=== PATIENT | female | born 1970 | race Caucasian/White ===

== ENCOUNTER 2016-08-09 13:08 | Day surgery (SDC) | payer BC ==
[2012-11-08 13:27] VITALS: BP 130/45
[~2016-08-09 13:08] MED LIST: DIPRIVAN 200 MG/20 ML IV ONE; Kenalog-40 IM ONE; Lactated Ringers 1,000 ML IV ONE; Sensorcaine 0.25% 10 ML IJ ONE
--- NOTE | 2016-08-09 17:19 | XRAY ---
17 seconds fluoroscopy time in surgery for left side L3-S1 MBB.
--- NOTE | 2016-08-11 02:48 | XRAY ---
Indication: Left L3-S1 MBB. Intraoperative fluoroscopy was provided for 17 seconds. Single digital spot image submitted for interpretation demonstrates posterior spinal needles with the tips projected over the expected course of the left L3-S1 nerve roots. Correlate with intraoperative findings/report.
== END 2016-08-09 15:15 | disposition home or self-care (01) ==
LOC: SDC-PAIN 13:08
PROVIDERS: ATTEND Pain Medicine Interventional Pain Medicine
DX: M47.816 Spondylosis without myelopathy or radiculopathy, lumbar region (principal); M51.36 Other intervertebral disc degeneration, lumbar region; M79.7 Fibromyalgia; R20.2 Paresthesia of skin; G63 Polyneuropathy in diseases classified elsewhere; Z79.891 Long term (current) use of opiate analgesic
CPT/HCPCS: 64493; 64494; 64495; 72020; 77003; J2704; J3301

== ENCOUNTER 2016-08-27 23:49 | Emergency (ER) | payer BC ==
[2016-08-27 23:55] VITALS: O2SAT 98
[2016-08-28] MEDS ORDERED: BABY ASPIRIN 81 MG CHEW PO ONE (00:03)
[2016-08-28] MEDS ORDERED: Nitrostat 0.4 MG (ED) SL ONE ×2 (00:03→00:14)
[2016-08-28] MEDS ORDERED: ROCEPHIN 1 Gm-D5w 50 ml Bag** 1 G/50 ML IVPB IV STA (00:06)
--- NOTE | 2016-08-28 00:12 | ERPHSYRPT ---
- History of Present Illness Time Seen by Provider: 08/27/16 23:55 Historian: patient Exam Limitations: no limitations Physician History: FOR THE PAST 3.5 HOURS PT HAS HAD SHARP LEFT ANTERIOR CHEST PAIN RADIATING TO THE BACK WITH NAUSEA. PT ADMITS TO A NON-PRODUCTIVE COUGH FOR THE PAST 5 DAYS BUT DENIES FEVER. Aspirin Treatment Today: 81 mg x 4, provided by ED Allergies/Adverse Reactions: Penicillins Allergy (Mild, Verified 08/28/16 00:10) Swelling Home Medications: Dextroamphetamine/Amphetamine [Adderall 10 mg Tablet] 20 mg PO BID 11/01/15 [ History] Biotin [Nail-Ex] 7,500 mcg PO DAILY 06/08/16 [History] Duloxetine HCl [Cymbalta] 60 mg PO DAILY 06/08/16 [History] Ergocalciferol (Vitamin D2) [Vitamin D] 50,000 unit PO .WEEKLY 06/08/16 [History ] Fluoxetine HCl [Prozac] 40 mg PO DAILY 06/08/16 [History] Hydrocodone Bit/Acetaminophen [[place] 7.5-325 Tablet] 1 each PO BID PRN PRN 06/08 [History] Gabapentin 600 mg PO BID 08/28/16 [History] Hx Tetanus, Diphtheria Vaccination/Date Given: Yes Hx Influenza Vaccination/Date Given: No Hx Pneumococcal Vaccination/Date Given: No - Review of Systems Constitutional: No Fever Respiratory: Cough Cardiac: Chest Pain Abdominal/Gastrointestinal: Nausea Musculoskeletal: Back Pain Skin: No Rash All Other Systems: Reviewed and Negative - Past Medical History Pertinent Past Medical History: Yes Neurological History: Peripheral Neuropathy ENT History: No Pertinent History, Other Cardiac History: Myocardial Infarction ([place]) Respiratory History: No Pertinent History Endocrine Medical History: No Pertinent History Musculoskeletal History: Fibromyalgia GI Medical History: No Pertinent History History: No Pertinent History Psycho-Social History: Depression Female Reproductive Disorders: No Pertinent History Other Medical History: neuropathy - Past Surgical History Past Surgical History: Yes Female Surgical History: Hysterectomy Other Surgical History: cyst removals from occiput region of scalp noted - Social History Smoking Status: Never smoker Exposure to second hand smoke: No Drug Use: none Patient Lives Alone: No - Female History Hx Now: No - Nursing Vital Signs Nursing Vital Signs: Initial Vital Signs Temperature 98.7 F Temperature Source Oral Pulse Rate [] 102 Pulse Rate 95 Respiratory Rate 16 Blood Pressure [] 144/86 Pain Intensity 6 - Physical Exam General Appearance: alert Eye Exam: PERRL/EOMI Ears, Nose, Throat Exam: moist mucous membranes, pharyngeal erythema, other (TM' S ERYTHEMATOUS) Neck Exam: normal inspection Respiratory Exam: chest tenderness (MILD LEFT ANTERIOR CHEST TENDERNESS(SIMILAR TO PAIN OF C.C.).), lungs clear Cardiovascular Exam: normal heart sounds Gastrointestinal/Abdomen Exam: soft, normal bowel sounds Back Exam: normal range of motion Extremity Exam: normal inspection, No pedal edema Neurologic Exam: alert, cooperative Skin Exam: warm, dry SpO2 Interpretation: normal SpO2: 98 Oxygen Delivery: Room Air - Course Nursing assessment & vital signs reviewed: Yes EKG Interpreted by Me: RATE (99), Sinus Rhythm, NORMAL AXIS, NORMAL INTERVALS - Radiology Exams Chest X-ray Interpretation: Interpreted by me, No Pneumonia Ordered Tests: Active Orders 24 hr Category Date Time Status Degreaser Operator STAT Care 08/28/16 00:03 Active EKG-ER Only STAT Care 08/28/16 00:03 Active IV Insertion STAT Care 08/28/16 00:03 Active Oxygen-ED Only NASAL CANNULA 2 lpm Care 08/28/16 00:03 Active Pulse Oximetry (ED) STAT Care 08/28/16 00:03 Active CHEST 1 VIEW (PORTABLE) Stat Exams 08/28/16 00:04 Taken AMYLASE Stat Lab 08/28/16 00:11 Completed CBC W DIFF Stat Lab 08/28/16 00:11 Completed CMP Stat Lab 08/28/16 00:11 Completed CULTURE, THROAT Stat Lab 08/28/16 00:16 Received LIPASE Stat Lab 08/28/16 00:11 Completed MAGNESIUM Stat Lab 08/28/16 00:11 Completed Manual Differential NC Stat Lab 08/28/16 00:11 Completed [place] Screen Stat Lab 08/28/16 00:11 Completed STREP SCREEN-BETA A Stat Lab 08/28/16 00:16 Completed TROPONIN Q3H Lab 08/28/16 00:11 Completed TROPONIN Q3H Lab 08/28/16 03:15 Ordered TROPONIN Q3H Lab 08/28/16 06:15 Ordered TROPONIN Q3H Lab 08/28/16 09:15 Ordered TROPONIN Q3H Lab 08/28/16 12:15 Ordered Medication Summary Generic Name Dose Route Start Last Admin Trade Name Freq PRN Reason Stop Dose Admin Sodium Chloride 1,000 mls @ 100 mls/hr 08/28/16 00:15 08/28/16 00:20 Sodium Chloride 0.9% 1000 Ml IV 09/27/16 00:14 100 mls/hr .Q10H SERVANDO Administration Discontinued Medications Generic Name Dose Route Start Last Admin Trade Name Bobbi PRN Reason Stop Dose Admin Aspirin 324 mg 08/28/16 00:03 08/28/16 00:19 Baby Aspirin 81 Mg Chew PO 08/28/16 00:04 324 mg STAT ONE Administration Aspirin Confirm 08/28/16 00:14 Baby Aspirin 81 Mg Chew Administered 08/28/16 00:15 Dose 324 mg .ROUTE .STK-MED ONE Ceftriaxone Sodium/Dextrose 1 g in 50 mls @ 100 mls/hr 08/28/16 00:06 00:20 Rocephin 1 Gm-D5w 50 Ml Bag IV 08/28/16 00:35 100 mls/hr STAT STA Administration Ceftriaxone Sodium/Dextrose Confirm 08/28/16 00:14 Rocephin 1 Gm-D5w 50 Ml Bag Administered 08/28/16 00:15 Dose 1 g in 50 mls @ ud IV .STK-MED ONE Ketorolac Tromethamine 30 mg 08/28/16 00:37 08/28/16 00:42 Toradol 30 Mg Injection IV 08/28/16 00:38 30 mg STAT ONE Administration Ketorolac Tromethamine Confirm 08/28/16 00:41 Toradol 30 Mg Injection Administered 08/28/16 00:42 Dose 30 mg .ROUTE .STK-MED ONE Nitroglycerin 0.4 mg 08/28/16 00:03 08/28/16 00:20 Nitrostat 0.4 Mg (Ed) SL 08/28/16 00:04 0.4 mg STAT ONE Administration Nitroglycerin Confirm 08/28/16 00:14 Nitrostat 0.4 Mg (Ed) Administered 08/28/16 00:15 Dose 0.4 mg SL .STK-MED ONE Lab/Rad Data: Laboratory Result Diagrams 08/28/16 00:11 08/28/16 00:11 Laboratory Results 08/28/16 08/28/16 08/28/16 Range/Units 00:16 00:11 00:11 WBC (4.0-10.5) K/mm3 RBC (4.1-5.4) M/mm3 Hgb (12.0-16.0) gm/dl Hct (35-47) % MCV (78-100) fl MCH (26-32) pg MCHC (32-36) g/dl RDW (11.5-14.0) % Plt Count (150-450) K/mm3 MPV (6-9.5) fl Sodium (136-145) mEq/L Potassium (3.5-5.1) mEq/L Chloride (98-107) mEq/L Carbon Dioxide (21-32) mEq/L Anion Gap (5-15) MEQ/L BUN (9-20) mg/dL Creatinine (0.55-1.30) mg/dl Estimated GFR ML/MIN Glucose (70-110) MG/DL Calcium (8.5-10.1) mg/dL Magnesium (1.8-2.4) mg/dL Total Bilirubin (0.2-1.0) mg/dL AST (15-37) U/L ALT (12-78) U/L Alkaline Phosphatase (46-116) U/L Troponin I < 0.017 (0.000-0.056) ng/ml Serum Total Protein (6.4-8.2) gm/dL Albumin (3.4-5.0) g/dL Amylase (25-115) U/L Lipase (73-393) U/L Monoscreen NEGATIVE (Negative) Streptococcus Screen NEGATIVE (Negative) 08/28/16 08/28/16 Range/Units 00:11 00:11 WBC 14.8 H (4.0-10.5) K/mm3 RBC 5.20 (4.1-5.4) M/mm3 Hgb 14.8 (12.0-16.0) gm/dl Hct 44.4 (35-47) % MCV 85.4 (78-100) fl MCH 28.5 (26-32) pg MCHC 33.3 (32-36) g/dl RDW 13.2 (11.5-14.0) % Plt Count 386 (150-450) K/mm3 MPV 9.0 (6-9.5) fl Sodium 138 (136-145) mEq/L Potassium 3.9 (3.5-5.1) mEq/L Chloride 103 (98-107) mEq/L Carbon Dioxide 22.7 (21-32) mEq/L Anion Gap 15.7 H (5-15) MEQ/L BUN 16 (9-20) mg/dL Creatinine 0.95 (0.55-1.30) mg/dl Estimated GFR > 60 ML/MIN Glucose 111 H (70-110) MG/DL Calcium 9.5 (8.5-10.1) mg/dL Magnesium 1.7 L (1.8-2.4) mg/dL Total Bilirubin 0.50 (0.2-1.0) mg/dL AST 17 (15-37) U/L ALT 27 (12-78) U/L Alkaline Phosphatase 122 H (46-116) U/L Troponin I (0.000-0.056) ng/ml Serum Total Protein 7.8 (6.4-8.2) gm/dL Albumin 3.8 (3.4-5.0) g/dL Amylase 22 L (25-115) U/L Lipase 63 L (73-393) U/L Monoscreen (Negative) Streptococcus Screen (Negative) - Departure Time of Disposition: 01:20 Departure Disposition: Home Clinical Impression: CHEST PAIN, BOM, PHARYNGITIS, PN, FIBROMYALGIA Condition: Stable Critical Care Time: No Referrals: WAQAR GREEN MD [Primary Care Provider] - Instructions: Chest Pain, Otitis Media (Middle Ear Infection), Pharyngitis/ Tonsillopharyngitis -- Adult Additional Instructions: FOLLOW UP WITH PRIVATE DOCTOR TOMORROW. Prescriptions: Guaifenesin/Codeine Phosphate [Robitussin AC Syrup] 10 ml PO Q4H PRN PRN #120 ml PRN Reason: Cough Naproxen [Naprosyn] 500 mg PO Q12H PRN PRN #20 tablet PRN Reason: Pain Azithromycin 250 mg [Zithromax 250 MG TABLET] 250 mg PO ZPACK #6 tablet
[2016-08-28] MEDS ORDERED: BABY ASPIRIN 81 MG CHEW ONE (00:14)
[2016-08-28] MEDS ORDERED: Sodium Chloride 0.9% 1000 ML 1,000 ML ONE (00:14)
[2016-08-28] MEDS ORDERED: ROCEPHIN 1 Gm-D5w 50 ml Bag** 1 G/50 ML IVPB IV ONE (00:14)
[2016-08-28] MEDS ORDERED: Sodium Chloride 0.9% 1000 ML 1,000 ML IV SCH (00:15)
[2016-08-28 00:25] LABS: Mean Cell Volume 85.4 fl (78-100); Mean Corpuscular Hemoglobin 28.5 pg (26-32); Platelet Count 386 K/mm3 (150-450); Red Cell Distribution Width 13.2 % (11.5-14.0); White Blood Count 14.8 K/mm3 (4.0-10.5)
[2016-08-28 00:35] LABS: ALBUMIN 3.8 g/dL (3.4-5.0); ALKALINE PHOSPHATASE 122 U/L (46-116); ANION GAP 15.7 MEQ/L (5-15); BLOOD UREA NITROGEN 16 mg/dL (9-20); CHLORIDE 103 mEq/L (98-107); Carbon Dioxide 22.7 mEq/L (21-32); Glucose 111 MG/DL (70-110); LIPASE 63 U/L (73-393); MAGNESIUM 1.7 mg/dL (1.8-2.4); Potassium 3.9 mEq/L (3.5-5.1); SGOT/AST 17 U/L (15-37); SGPT/ALT 27 U/L (12-78); SODIUM 138 mEq/L (136-145); Total Protein 7.8 gm/dL (6.4-8.2)
[2016-08-28] MEDS ORDERED: TORAdol 30 mg Injection IV ONE (00:37)
[2016-08-28] MEDS ORDERED: TORAdol 30 mg Injection ONE (00:41)
[2016-08-28] MEDS ORDERED: Robitussin AC Syrup Unit Dose Cup PO PRN (01:21)
[2016-08-28] MEDS ORDERED: Hydromorphone 1 mg/ml Ampule IV ONE (01:23)
[2016-08-28] MEDS ORDERED: Phenergan 25 MG INJ IV ONE (01:23)
[2016-08-28] MEDS ORDERED: Phenergan 25 MG INJ ONE (01:28)
[2016-08-28] MEDS ORDERED: Hydromorphone 1 mg/ml Ampule ONE (01:28)
[2016-08-28] MEDS ORDERED: MAG-OX 400 ONE (01:28)
[2016-08-28] MEDS ORDERED: Robitussin AC Syrup Unit Dose Cup ONE (01:39)
[2016-08-28 01:49] VITALS: BP 123/75; PULSE 86
[2016-08-28 03:37] LABS: ATYPICAL LYMPHS 4 %; BAND 3 % (0.0-2.0); Basophil 2 % (0.0-1.0); Eosinophil 1 % (0.00-3.0); Platelet Estimate NORMAL (NORMAL); Total Cells Counted 100
--- NOTE | 2016-08-28 08:41 | XRAY ---
Indication: Chest pain. Comparison: November 01, 2015. Portable chest remains clear. Heart and mediastinal structures within normal limits for AP portable projection. Bony thorax intact. Impression: Stable nonacute chest.
[2016-08-28] MEDS ORDERED: MAG-OX 400 PO SCH (10:00)
== END 2016-08-28 02:03 | disposition home or self-care (01) ==
LOC: ED 23:49
DX: R07.89 Other chest pain (principal); H66.93 Otitis media, unspecified, bilateral; J02.9 Acute pharyngitis, unspecified; J18.9 Pneumonia, unspecified organism; M79.7 Fibromyalgia; M54.9 Dorsalgia, unspecified; R11.0 Nausea; R05 Cough
CPT/HCPCS: 36000; 36415; 71010; 80053; 82150; 83690; 83735; 84484; 85025; 86308; 87070; 87430; 93005; 93041; 96360; 96361; 96365; 96374; 96375; 99284; J0696; J1170; J1885; J2550; A9270-GY

== ENCOUNTER 2017-05-09 09:29 | Day surgery (SDC) | payer BC ==
[2012-11-08 13:27] VITALS: BP 130/45
[2017-05-09] MEDS ORDERED: Lactated Ringers 1,000 ML IV ONE (09:30)
[2017-05-09] MEDS ORDERED: Marcaine 0.5% SDV 10 ML ONE (10:00)
[2017-05-09] MEDS ORDERED: DIPRIVAN 200 MG/20 ML IV ONE (10:00)
[2017-05-09] MEDS ORDERED: Xylocaine 1% Vial 30 ML PF IJ ONE (10:00)
--- NOTE | 2017-05-09 12:31 | XRAY ---
Indication: Left L3-L4 and L4-L5 facet MBB. Intraoperative fluoroscopy was provided for 26 seconds. Single digital spot image submitted for interpretation demonstrates posterior spinal needle tips projecting over the left L3-L4 and L4-L5 facets. Correlate with intraoperative findings/report.
--- NOTE | 2017-05-09 12:57 | XRAY ---
26 seconds fluoroscopy time in surgery for left L3-4 and L4-5 facet MBB.
--- NOTE | 2017-05-10 12:37 | OP ---
DATE OF PROCEDURE: 05/09/2017 1047 SURGEON: Pipe Paris D.O. PREOPERATIVE DIAGNOSIS: Degenerative lumbar spine disease, spondylosis, low back pain. POSTOPERATIVE DIAGNOSIS: Degenerative lumbar spine disease, spondylosis, low back pain. PROCEDURE PERFORMED: Left L4-L3 medial branch block under fluoroscopic guidance. DESCRIPTION OF THE PROCEDURE: The patient was taken to the operating room and placed in the prone position on the table. Skin at the injection site was prepped and draped in sterile fashion. Under fluoroscopy, bony anatomy of the targeted injection site was visualized. Induction agent was given as per anesthesia while vital signs were monitored. Local anesthetic agent of 2 cc, 1% lidocaine preservative free was introduced to anesthetize the skin and the subcutaneous tissue through the injection site. Under fluoroscopic guidance, a #20 gauge standard spinal needle was advanced into the target medial branch through the oblique approach. The preservative free 0.5 cc of 1% lidocaine and 0.5 cc of 0.25 - 0.5% Marcaine were injected into each of the targeted medial branch nerve. After the needle was being removed, the skin was cleansed with alcohol and then a bandage was applied. No complications or adverse consequences were observed. The patient was returned to the holding area until stabilized before discharge to home. After the patient had been fully recovered from anesthesia, the patient states 100% pain reduction for back pain after the procedure and there is 50% pain reduction for the leg pain. The patient will be followed up within ten days after the injection for re-evaluation.
== END 2017-05-09 11:34 | disposition home or self-care (01) ==
LOC: SDC-PAIN 09:29
PROVIDERS: ATTEND Internal Medicine
DX: M46.96 Unspecified inflammatory spondylopathy, lumbar region (principal); M51.36 Other intervertebral disc degeneration, lumbar region; M62.838 Other muscle spasm; Z79.891 Long term (current) use of opiate analgesic
CPT/HCPCS: 64493; 64494; 72020; 77003; J2001; J2704

== ENCOUNTER 2017-07-27 19:46 | Emergency (ER) | payer BC ==
[2017-07-27] MEDS ORDERED: Sodium Chloride 0.9% 1000 ML 1,000 ML (20:23)
[2017-07-27] MEDS: Sodium Chloride 0.9% 1000 ML 1,000 ML IV (20:24)
[2017-07-27 20:29] LABS: Granulocyte Absolute (ANC) 10.34 (1.4-6.9); Hematocrit 46.1 % (35-47); Hemoglobin 15.4 gm/dl (12.0-16.0); Mean Cell Volume 85.4 fl (78-100); Mean Corpuscular Hemoglobin 28.5 pg (26-32); Mean Corpuscular Hgb Concent. 33.4 g/dl (32-36); Mean Platelet Volume 9.4 fl (6-9.5); Platelet Count 395 K/mm3 (150-450); Red Cell Distribution Width 13.3 % (11.5-14.0); White Blood Count 14.1 K/mm3 (4.0-10.5)
[2017-07-27 20:35] LABS: ADD MANUAL DIFF? YES (NO)
[2017-07-27 20:42] LABS: ALBUMIN 4.6 g/dL (3.5-5.0); ALKALINE PHOSPHATASE 149 U/L (38-126); ANION GAP 18.7 MEQ/L (5-15); BLOOD UREA NITROGEN 18 mg/dL (7-17); CHLORIDE 103 mmol/L (98-107); Calcium 10.2 mg/dL (8.4-10.2); Carbon Dioxide 25 mmol/L (22-30); Creatinine 1 0.97 mg/dL (0.52-1.04); EST GLOMERULAR FILTRATION RATE > 60.0 ML/MIN; Glucose 141 mg/dL (74-106); MAGNESIUM 1.9 mg/dL (1.6-2.3); SGOT/AST 33 U/L (14-36); SGPT/ALT 33 U/L (0-35); SODIUM 141 mmol/L (137-145); Total Protein 8.6 g/dL (6.3-8.2)
[2017-07-27] MEDS ORDERED: Ativan 2 MG/1 ML VIAL (21:03)
[2017-07-27] MEDS ORDERED: ROCEPHIN 1 Gm-D5w 50 ml Bag** 1 G/50 ML IVPB IV (21:03)
[2017-07-27] MEDS ORDERED: TORAdol 30 mg Injection (21:03)
[2017-07-27] MEDS: TORAdol 30 mg Injection IV (21:05)
[2017-07-27 21:11] LABS: BAND 4 % (0.0-2.0); Basophil 1 % (0.0-1.0); Lymphocytes 14 % (24-44); Monocyte 3 % (0.0-12.0); Neutrophils 78 % (36.0-66.0); Total Cells Counted 100
[2017-07-27 21:13] LABS: Platelet Estimate NORMAL (NORMAL)
[2017-07-27] MEDS: ROCEPHIN 1 Gm-D5w 50 ml Bag** 1 G/50 ML IVPB IV (21:18)
[2017-07-27] MEDS: Ativan 2 MG/1 ML VIAL IV (21:18)
[2017-07-27 21:46] LABS: Appearance CLOUDY (CLEAR); Collection Type CLOUDY; Leukocyte Esterase 2+ (NEGATIVE)
[2017-07-27 21:47] LABS: Bilirubin NEGATIVE (NEGATIVE); Blood TRACE NON-HEM Ery/ul (0-5); COMPLETE URINE MICROSCOPIC? YES; Glucose NEGATIVE (NEGATIVE); Ketones SMALL (NEGATIVE); Nitrite NEGATIVE (NEGATIVE); Protein,Urine Dip NEGATIVE (Negative); Urobilinogen NORMAL mg/dL (0-1)
[2017-07-27 21:49] LABS: Epithelial Cells RARE /HPF (FEW)
[2017-07-27 21:50] LABS: ADD URINE CULTURE? YES (NO)
[2017-07-27] MEDS: Rocephin 1000 MG INJ IM (21:51)
== END 2017-07-27 22:46 | disposition home or self-care (01) ==
LOC: ED 19:46
CPT/HCPCS: 36415; 80053; 81000; 83735; 85025; 87086; 96360; 96375; J0696; J1885; J2060

== ENCOUNTER 2018-08-21 14:08 | Day surgery (SDC) | payer BC ==
[2012-11-08 13:27] VITALS: BP 130/45
[2018-08-21] MEDS ORDERED: Xylocaine 1% Vial 30 ML PF IJ ONE (14:09)
[2018-08-21] MEDS ORDERED: DIPRIVAN 200 MG/20 ML IV ONE (14:09)
[2018-08-21] MEDS ORDERED: Sodium Chloride 0.9(Preservative Free) 10 ML IJ ONE (14:09)
[2018-08-21] MEDS ORDERED: Depo-Medrol 40 MG/ML IM ONE (14:09)
[2018-08-21] MEDS ORDERED: BENADRYL 50 MG/ML ONE (16:33)
[2018-08-21] MEDS ORDERED: Lactated Ringers 1,000 ML IV ONE (17:05)
--- NOTE | 2018-08-21 17:21 | XRAY ---
14 seconds fluoroscopy time in surgery for lumbar TERRELL.
--- NOTE | 2018-08-21 18:47 | XRAY ---
17 seconds fluoroscopy time in surgery for cervical TERRELL.
== END 2018-08-21 16:38 | disposition home or self-care (01) ==
LOC: SDC-PAIN 14:08
PROVIDERS: ATTEND Psychiatry & Neurology Pain Medicine
DX: M54.16 Radiculopathy, lumbar region (principal); G47.30 Sleep apnea, unspecified; G62.9 Polyneuropathy, unspecified; F32.9 Major depressive disorder, single episode, unspecified
CPT/HCPCS: 72020; 77003; J1030; J1200; J2001; J2704

== ENCOUNTER 2019-02-26 13:53 | Day surgery (SDC) | payer BC ==
[2012-11-08 13:27] VITALS: BP 130/45
[2019-02-26] MEDS ORDERED: Xylocaine-Mpf 2% 5 Ml Vial IJ ONE (13:54)
[2019-02-26] MEDS ORDERED: Sensorcaine 0.25% 10 ML IJ ONE (13:54)
[2019-02-26] MEDS ORDERED: Ketamine HCl 50 MG/ML ONE (14:38)
[2019-02-26] MEDS ORDERED: DIPRIVAN 200 MG/20 ML IV ONE ×2 (14:38→15:00)
[2019-02-26] MEDS ORDERED: Lactated Ringers 1,000 ML IV ONE (16:02)
--- NOTE | 2019-02-26 16:38 | XRAY ---
Indication: Left lumbar sympathetic nerve block. Intraoperative fluoroscopy was provided for 20 seconds. 2 digital spot images submitted for interpretation demonstrates posterior left needle tip projecting just anterior to the L3 vertebral body. Small amount of contrast injected for needle tip placement. Correlate with intraoperative findings/report.
--- NOTE | 2019-02-26 16:54 | XRAY ---
20 seconds fluoroscopy time in surgery for left lumbar sympathetic nerve block.
== END 2019-02-26 15:30 | disposition home or self-care (01) ==
LOC: SDC-PAIN 13:53
PROVIDERS: ATTEND Psychiatry & Neurology Pain Medicine
DX: G90.522 Complex regional pain syndrome I of left lower limb (principal); G47.30 Sleep apnea, unspecified; F41.8 Other specified anxiety disorders; M79.7 Fibromyalgia; I51.9 Heart disease, unspecified; G62.9 Polyneuropathy, unspecified; Z79.899 Other long term (current) drug therapy
CPT/HCPCS: 64520; 72020; 77002; J2704; Q9966

== ENCOUNTER 2019-09-24 12:24 | Day surgery (SDC) | payer BC ==
[2012-11-08 13:27] VITALS: BP 130/45
[2019-09-24] MEDS ORDERED: Sensorcaine 0.25% 10 ML IJ ONE (12:25)
[2019-09-24] MEDS ORDERED: Xylocaine 1% Vial 30 ML PF IJ ONE (12:25)
[2019-09-24] MEDS ORDERED: Ketamine HCl 50 MG/ML ONE (14:03)
[2019-09-24] MEDS ORDERED: DIPRIVAN 200 MG/20 ML IV ONE (14:03)
[2019-09-24] MEDS ORDERED: Lactated Ringers 1,000 ML IV ONE (15:51)
--- NOTE | 2019-09-24 16:08 | XRAY ---
Indication: Right lumbar sympathetic nerve block. Intraoperative fluoroscopy was provided for 33 seconds. 2 digital spot images submitted for interpretation demonstrates right posterior needle tip projecting anterior to a mid lumbar segment, probably L3. Small amount of contrast injected for needle tip placement. Correlate with intraoperative findings/report.
--- NOTE | 2019-09-24 16:14 | XRAY ---
33 seconds fluoroscopy time in surgery for right sympathetic lumbar nerve block.
== END 2019-09-24 14:36 | disposition home or self-care (01) ==
LOC: SDC-PAIN 12:24
PROVIDERS: ATTEND Psychiatry & Neurology Pain Medicine
DX: G90.521 Complex regional pain syndrome I of right lower limb (principal); G47.30 Sleep apnea, unspecified; G62.9 Polyneuropathy, unspecified; M79.7 Fibromyalgia; Z79.899 Other long term (current) drug therapy; Z86.79 Personal history of other diseases of the circulatory system; I25.2 Old myocardial infarction
CPT/HCPCS: 64520; 72100; 77002; J2001; J2704; Q9966

== ENCOUNTER 2020-11-13 16:23 | Observation (INO) | payer OTHER ==
--- NOTE | 2020-11-13 16:43 | ERPHSYRPT ---
- History of Present Illness Time Seen by Provider: 11/13/20 16:43 Source: patient Physician History: This is a 50-year-old morbidly obese white female patient of Dr. Green who has received both vaccinations of [employer] COVID-19 vaccine and presents with multiple complaints including headache, rib pain, shortness of breath, fever, cough. Patient presents with room air oxygenation of 98%. Her heart rate is within normal limits. She is afebrile. Patient stated that 2 days ago she began a Z- Adarsh that her family member had. Patient has a significant history of insulin- dependent diabetes, peripheral neuropathy, fibromyalgia, and gastroesophageal reflux disease. Patient sees Dr. Kenny as her pain specialist for her fibromyalgia and peripheral neuropathy. Patient states that she has had a myocardial infarction in the past. Her symptoms have been worsening over the last 2 days. She denies abdominal pain. She denies vomiting and diarrhea. Cough Quality/Degree: mild Possible Cause: occasional episodes Associated Symptoms: fever, cough, headache, nasal congestion, nasal drainage, shortness of breath Allergies/Adverse Reactions: Penicillins Allergy (Mild, Verified 11/13/20 16:47) Swelling Home Medications: Duloxetine HCl [Cymbalta] 60 mg PO DAILY 06/08/16 [History] Ergocalciferol (Vitamin D2) [Vitamin D] 50,000 unit PO .WEEKLY 06/08/16 [Hist ory] Hydrocodone Bit/Acetaminophen [[place] 7.5-325 Tablet] 1 each PO [id number] PRN 06/08/16 [History] Gabapentin 600 mg PO UD 08/28/16 [History] Omeprazole 20 MG [Prilosec 20 mg] 20 mg PO DAILY 05/02/17 [History] Fluoxetine HCl 1 ea DAILY 11/13/20 [History] Insulin Detemir [Levemir] 45 unit SQ DAILY 11/13/20 [History] modafiniL [Provigil] 1 ea DAILY 11/13/20 [History] Hx Tetanus, Diphtheria Vaccination/Date Given: Yes Hx Influenza Vaccination/Date Given: No Hx Pneumococcal Vaccination/Date Given: No Travel Risk - International Travel Have you traveled outside of the country in past 3 weeks: No - Coronavirus Screening Are you exhibiting any of the following symptoms?: No Close contact with a COVID-19 positive Pt in past 14-21 Days: No - Vaccine Status Have you recieved a Covid-19 vaccination: Yes 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[employer]: [employer] - Review of Systems Constitutional: Fever Eyes: No Symptoms Ears, Nose, & Throat: Nose Congestion, Nose Discharge Respiratory: Cough, Dyspnea Cardiac: Chest Pain Abdominal/Gastrointestinal: No Symptoms (With cough) Genitourinary Symptoms: No Symptoms Musculoskeletal: No Symptoms Skin: No Symptoms Neurological: No Symptoms, Sensory Changes Endocrine: No Symptoms Hematologic/Lymphatic: No Symptoms Immunological/Allergic: No Symptoms All Other Systems: Reviewed and Negative - Past Medical History Pertinent Past Medical History: Yes Neurological History: Peripheral Neuropathy ENT History: No Pertinent History, Other Cardiac History: Myocardial Infarction ([place]) Respiratory History: No Pertinent History Endocrine Medical History: No Pertinent History Musculoskeletal History: Fibromyalgia GI Medical History: No Pertinent History History: No Pertinent History Psycho-Social History: Depression Female Reproductive Disorders: No Pertinent History Other Medical History: neuropathy - Past Surgical History Past Surgical History: Yes Female Surgical History: Hysterectomy Other Surgical History: cyst removals from occiput region of scalp noted - Social History Smoking Status: Never smoker Exposure to second hand smoke: No Drug Use: none Patient Lives Alone: No - Nursing Vital Signs Nursing Vital Signs: Initial Vital Signs Temperature 98.2 F 11/13/20 16:40 Pulse Rate 82 11/13/20 16:40 Respiratory Rate 20 11/13/20 16:40 Blood Pressure 131/94 11/13/20 16:40 O2 Sat by Pulse Oximetry 95 11/13/20 16:40 Pain Scale Pain Intensity 4 - Physical Exam General Appearance: mild distress, alert, anxiety, obese Eye Exam: PERRL/EOMI, eyes nml inspection Ears, Nose, Throat Exam: normal ENT inspection, moist mucous membranes Neck Exam: normal inspection, non-tender, supple, full range of motion Respiratory Exam: normal breath sounds, chest tenderness, lungs clear, airway intact, No respiratory distress Cardiovascular Exam: regular rate/rhythm, normal heart sounds, normal peripheral pulses Gastrointestinal/Abdomen Exam: soft, normal bowel sounds, No tenderness Pelvic Exam: not done Rectal Exam: not done Back Exam: normal inspection, normal range of motion, No CVA tenderness, No vertebral tenderness Extremity Exam: normal inspection, normal range of motion, pelvis stable Neurologic Exam: alert, oriented x 3, cooperative, cable coverer II-XII nml as tested, normal mood/affect, nml cerebellar function, nml station & gait, sensation nml Skin Exam: normal color, warm, dry Lymphatic Exam: No adenopathy SpO2 Interpretation: normal O2 Delivery: Room Air - Course Nursing assessment & vital signs reviewed: Yes EKG Interpreted by Me: RATE (82), Sinus Rhythm, NORMAL AXIS, NORMAL INTERVALS, NORMAL QRS, NORMAL ST-T, Other (There are no acute ischemic changes on today's EKG. When compared to EKG dated 08/27/2017, there are no changes.) Ordered Tests: Active Orders 24 hr Category Date Time Status EKG-ER Only STAT Care 11/13/20 17:24 Active IV Insertion STAT Care 11/13/20 17:24 Active Isolation, Initiate & Maintain STAT Care 11/13/20 17:24 Active Pulse Oximetry (ED) STAT Care 11/13/20 17:24 Active CHEST 1 VIEW (PORTABLE) Stat Exams 11/13/20 17:25 Taken BLOOD CULTURE Stat Lab 11/13/20 17:59 Received CBC W DIFF Stat Lab 11/13/20 17:45 Completed CMP Stat Lab 11/13/20 17:45 Completed CULTURE,URINE Stat Lab 11/13/20 17:34 Received D-DIMER QUANTITATIVE Stat Lab 11/13/20 17:45 Completed INFLUENZA A+B JUDY Stat Lab 11/13/20 17:59 Completed Lactic Acid Stat Lab 11/13/20 17:45 Completed Manual Differential NC Stat Lab 11/13/20 17:45 Completed Tift Screen Stat Lab 11/13/20 17:45 Completed UA W/RFX UR CULTURE Stat Lab 11/13/20 17:34 Completed Medication Summary Generic Name Dose Route Start Last Admin Trade Name Freq PRN Reason Stop Dose Admin Levofloxacin/Dextrose 500 mg in 100 mls @ 100 mls/hr 11/13/20 18:31 11/13/20 18:36 Levofloxacin 500mg/100ml D5w IV 11/13/20 19:30 100 ml/hr STAT STA 100 mls/hr Administration Discontinued Medications Generic Name Dose Route Start Last Admin Trade Name Freq PRN Reason Stop Dose Admin Hydrocodone Bitart/Acetaminophen 10 ml 11/13/20 17:26 11/13/20 17:33 Hydrocodone-Acetamin 2.5-108/5 Ml Solution PO 11/13/20 17:27 10 ml STAT STA Administration Hydrocodone Bitart/Acetaminophen Confirm 11/13/20 17:29 Hydrocodone-Acetamin 2.5-108/5 Ml Solution Administered 11/13/20 17:30 Dose 5 ml .ROUTE .STK-MED ONE Dexamethasone Sodium Phosphate 8 mg 11/13/20 17:26 11/13/20 17:33 Decadron 10mg Inj. IV 11/13/20 17:27 8 mg STAT ONE Administration Dexamethasone Sodium Phosphate Confirm 11/13/20 17:29 Decadron 10mg Inj. Administered 11/13/20 17:30 Dose 10 mg .ROUTE .STK-MED ONE Sodium Chloride 1,000 mls @ 999 mls/hr 11/13/20 17:24 11/13/20 18:34 Sodium Chloride 0.9% 1000 Ml IV 11/13/20 18:24 Infused .Q1H1M STA Infusion Sodium Chloride Confirm 11/13/20 17:29 Sodium Chloride 0.9% 1000 Ml Administered 11/13/20 17:30 Dose 1,000 mls @ ud .ROUTE .STK-MED ONE Levofloxacin/Dextrose Confirm 11/13/20 18:33 Levofloxacin 500mg/100ml D5w Administered 11/13/20 18:34 Dose 500 mg in 100 mls @ ud IV .STK-MED ONE Lab/Rad Data: Laboratory Result Diagrams 11/13/20 17:45 11/13/20 17:45 Laboratory Results 11/13/20 11/13/20 11/13/20 Range/Units 17:59 17:59 17:45 WBC (4.0-10.5) K/mm3 RBC (4.1-5.4) M/mm3 Hgb (12.0-16.0) gm/dl Hct (35-47) % MCV (78-100) fl MCH (26-32) pg MCHC (32-36) g/dl RDW (11.5-14.0) % Plt Count (150-450) K/mm3 MPV (7.5-11.0) fl D-Dimer 495 (215-500) ng/mL Sodium (137-145) mmol/L Potassium (3.5-5.1) mmol/L Chloride (98-107) mmol/L Carbon Dioxide (22-30) mmol/L Anion Gap (5-15) MEQ/L BUN (7-17) mg/dL Creatinine (0.52-1.04) mg/dL Estimated GFR ML/MIN Glucose (74-106) mg/dL Lactic Acid (0.4-2.0) Calcium (8.4-10.2) mg/dL Total Bilirubin (0.2-1.3) mg/dL AST (14-36) U/L ALT (0-35) U/L Alkaline Phosphatase (38-126) U/L Serum Total Protein (6.3-8.2) g/dL Albumin (3.5-5.0) g/dL Urine Color (YELLOW) Urine Appearance (CLEAR) Urine pH (5-6) Ur Specific [place] (1.005-1.025) Urine Protein (Negative) Urine Ketones (NEGATIVE) Urine Blood (0-5) Jacob/ul Urine Nitrite (NEGATIVE) Urine Bilirubin (NEGATIVE) Urine Urobilinogen (0-1) mg/dL Ur Leukocyte Esterase (NEGATIVE) Urine WBC (Auto) (0-5) /HPF Urine RBC (Auto) (0-2) /HPF U Epithel Cells (Auto) (FEW) /HPF Urine Bacteria (Auto) (NEGATIVE) /HPF U Non-Squamous Epi Cells (FEW) /HPF Urine Mucus (Auto) (NEGATIVE) /HPF Urine Culture Reflexed (NO) Urine Glucose (NEGATIVE) mg/dL Monoscreen (Negative) Influenza Type A Ag NEGATIVE (NEGATIVE) Influenza Type B Ag NEGATIVE (NEGATIVE) Group A Strep Antibody NOT DETECTED (NEGATIVE) 11/13/20 11/13/20 11/13/20 Range/Units 17:45 17:45 17:45 WBC (4.0-10.5) K/mm3 RBC (4.1-5.4) M/mm3 Hgb (12.0-16.0) gm/dl Hct (35-47) % MCV (78-100) fl MCH (26-32) pg MCHC (32-36) g/dl RDW (11.5-14.0) % Plt Count (150-450) K/mm3 MPV (7.5-11.0) fl D-Dimer (215-500) ng/mL Sodium 138 (137-145) mmol/L Potassium 3.8 (3.5-5.1) mmol/L Chloride 100 (98-107) mmol/L Carbon Dioxide 23 (22-30) mmol/L Anion Gap 18.5 H (5-15) MEQ/L BUN 18 H (7-17) mg/dL Creatinine 0.83 (0.52-1.04) mg/dL Estimated GFR > 60.0 ML/MIN Glucose 237 H (74-106) mg/dL Lactic Acid 2.7 H (0.4-2.0) Calcium 9.9 (8.4-10.2) mg/dL Total Bilirubin 0.80 (0.2-1.3) mg/dL AST 33 (14-36) U/L ALT 26 (0-35) U/L Alkaline Phosphatase 125 (38-126) U/L Serum Total Protein 8.6 H (6.3-8.2) g/dL Albumin 4.5 (3.5-5.0) g/dL Urine Color (YELLOW) Urine Appearance (CLEAR) Urine pH (5-6) Ur Specific [place] (1.005-1.025) Urine Protein (Negative) Urine Ketones (NEGATIVE) Urine Blood (0-5) Jacob/ul Urine Nitrite (NEGATIVE) Urine Bilirubin (NEGATIVE) Urine Urobilinogen (0-1) mg/dL Ur Leukocyte Esterase (NEGATIVE) Urine WBC (Auto) (0-5) /HPF Urine RBC (Auto) (0-2) /HPF U Epithel Cells (Auto) (FEW) /HPF Urine Bacteria (Auto) (NEGATIVE) /HPF U Non-Squamous Epi Cells (FEW) /HPF Urine Mucus (Auto) (NEGATIVE) /HPF Urine Culture Reflexed (NO) Urine Glucose (NEGATIVE) mg/dL Monoscreen NEGATIVE (Negative) Influenza Type A Ag (NEGATIVE) Influenza Type B Ag (NEGATIVE) Group A Strep Antibody (NEGATIVE) 11/13/20 11/13/20 Range/Units 17:45 17:34 WBC 11.4 H (4.0-10.5) K/mm3 RBC 5.24 (4.1-5.4) M/mm3 Hgb 15.2 (12.0-16.0) gm/dl Hct 45.7 (35-47) % MCV 87.2 (78-100) fl MCH 29.0 (26-32) pg MCHC 33.3 (32-36) g/dl RDW 13.2 (11.5-14.0) % Plt Count 408 (150-450) K/mm3 MPV 9.5 (7.5-11.0) fl D-Dimer (215-500) ng/mL Sodium (137-145) mmol/L Potassium (3.5-5.1) mmol/L Chloride (98-107) mmol/L Carbon Dioxide (22-30) mmol/L Anion Gap (5-15) MEQ/L BUN (7-17) mg/dL Creatinine (0.52-1.04) mg/dL Estimated GFR ML/MIN Glucose (74-106) mg/dL Lactic Acid (0.4-2.0) Calcium (8.4-10.2) mg/dL Total Bilirubin (0.2-1.3) mg/dL AST (14-36) U/L ALT (0-35) U/L Alkaline Phosphatase (38-126) U/L Serum Total Protein (6.3-8.2) g/dL Albumin (3.5-5.0) g/dL Urine Color YELLOW (YELLOW) Urine Appearance SLIGHTLY CLOUDY (CLEAR) Urine pH 5.0 (5-6) Ur Specific [place] 1.024 (1.005-1.025) Urine Protein NEGATIVE (Negative) Urine Ketones NEGATIVE (NEGATIVE) Urine Blood SMALL (0-5) Jacob/ul Urine Nitrite NEGATIVE (NEGATIVE) Urine Bilirubin NEGATIVE (NEGATIVE) Urine Urobilinogen NEGATIVE (0-1) mg/dL Ur Leukocyte Esterase LARGE (NEGATIVE) Urine WBC (Auto) 26-50 (0-5) /HPF Urine RBC (Auto) 3-5 (0-2) /HPF U Epithel Cells (Auto) RARE (FEW) /HPF Urine Bacteria (Auto) NONE SEEN (NEGATIVE) /HPF U Non-Squamous Epi Cells RARE (FEW) /HPF Urine Mucus (Auto) SLIGHT (NEGATIVE) /HPF Urine Culture Reflexed YES (NO) Urine Glucose >=500 (NEGATIVE) mg/dL Monoscreen (Negative) Influenza Type A Ag (NEGATIVE) Influenza Type B Ag (NEGATIVE) Group A Strep Antibody (NEGATIVE) - Progress Progress: improved, re-examined Progress Note: 11/13/20 18:13 Chest x-ray shows no acute cardiopulmonary process. 11/13/20 18:44 Signed patient out to Dr. Lopez at shift change. He will follow up on outstanding lab results and make final disposition. Blood Culture(s) Obtained: Yes Antibiotics given: Yes Counseled pt/family regarding: lab results, diagnosis, need for follow-up, rad results - Departure Departure Disposition: Observation Clinical Impression: UTI (urinary tract infection) Condition: Stable Critical Care Time: No Referrals: WAQAR GREEN MD [Primary Care Provider] -
[2020-11-13] MEDS ORDERED: Sodium Chloride 0.9% 1000 ML 1,000 ML IV STA (17:24)
[2020-11-13] MEDS ORDERED: HYDROCODONE-ACETAMIN 2.5-108/5 ML SOLUTION PO STA ×2 (17:26→19:24)
[2020-11-13] MEDS ORDERED: DECADRON 10MG INJ. IV ONE (17:26)
[2020-11-13] MEDS ORDERED: Sodium Chloride 0.9% 1000 ML 1,000 ML ONE (17:29)
[2020-11-13] MEDS ORDERED: DECADRON 10MG INJ. ONE (17:29)
[2020-11-13] MEDS ORDERED: HYDROCODONE-ACETAMIN 2.5-108/5 ML SOLUTION ONE ×2 (17:29→19:26)
[2020-11-13 18:11] LABS: Hematocrit 45.7 % (35-47); Hemoglobin 15.2 gm/dl (12.0-16.0); Mean Cell Volume 87.2 fl (78-100); Mean Corpuscular Hgb Concent. 33.3 g/dl (32-36); Mean Platelet Volume 9.5 fl (7.5-11.0); Platelet Count 408 K/mm3 (150-450); Red Blood Count 5.24 M/mm3 (4.1-5.4); Red Cell Distribution Width 13.2 % (11.5-14.0); White Blood Count 11.4 K/mm3 (4.0-10.5)
[2020-11-13 18:15] LABS: ALBUMIN 4.5 g/dL (3.5-5.0); ALKALINE PHOSPHATASE 125 U/L (38-126); ANION GAP 18.5 MEQ/L (5-15); BLOOD UREA NITROGEN 18 mg/dL (7-17); CHLORIDE 100 mmol/L (98-107); Calcium 9.9 mg/dL (8.4-10.2); Carbon Dioxide 23 mmol/L (22-30); Creatinine 1 0.83 mg/dL (0.52-1.04); EST GLOMERULAR FILTRATION RATE > 60.0 ML/MIN; Glucose 237 mg/dL (74-106); Potassium 3.8 mmol/L (3.5-5.1); SGOT/AST 33 U/L (14-36); SGPT/ALT 26 U/L (0-35); SODIUM 138 mmol/L (137-145); Total Protein 8.6 g/dL (6.3-8.2)
[2020-11-13 18:25] LABS: Appearance SLIGHTLY CLOUDY (CLEAR); Bacteria NONE SEEN /HPF (NEGATIVE); Bilirubin NEGATIVE (NEGATIVE); Blood SMALL Ery/ul (0-5); Epithelial Cells RARE /HPF (FEW); Glucose >=500 mg/dL (NEGATIVE); Ketones NEGATIVE (NEGATIVE); Leukocyte Esterase LARGE (NEGATIVE); Mucus SLIGHT /HPF (NEGATIVE); Nitrite NEGATIVE (NEGATIVE); Non-Squamous Epithelial Cells RARE /HPF (FEW); Protein,Urine Dip NEGATIVE (Negative); Specific Gravity 1.024 (1.005-1.025); Urobilinogen NEGATIVE mg/dL (0-1); WBC 26-50 /HPF (0-5)
[2020-11-13 18:30] LABS: INFLUENZA A NEGATIVE (NEGATIVE); INFLUENZA B NEGATIVE (NEGATIVE)
[2020-11-13] MEDS ORDERED: Levofloxacin 500MG/100ML D5W 500 MG/100 ML BAG IV STA (18:31)
[2020-11-13] MEDS ORDERED: Levofloxacin 500MG/100ML D5W 500 MG/100 ML BAG IV ONE (18:33)
[2020-11-13 19:28] LABS: BAND 1 % (0.0-2.0); Basophil 2 % (0.0-1.0); Eosinophil 3 % (0.00-3.0); Lymphocytes 11 % (24-44); Monocyte 5 % (0.0-12.0); Neutrophils 78 % (36.0-66.0); Platelet Estimate NORMAL (NORMAL); Total Cells Counted 100
--- NOTE | 2020-11-13 20:00 | XRAY ---
Indication: Cough. Comparison: August 28, 2016. Portable chest remains clear. Heart not enlarged for AP portable technique. Bony thorax intact. No new/acute findings.
[2020-11-13] MEDS ORDERED: BABY ASPIRIN 81 MG CHEW PO ONE (20:29)
[2020-11-13] MEDS ORDERED: BABY ASPIRIN 81 MG CHEW ONE (20:45)
[2020-11-13] MEDS ORDERED: TYLENOL 325 MG PO PRN (22:34)
[2020-11-13] MEDS ORDERED: Sodium Chloride 0.9% 500 ML 500 ML IV SCH (22:34)
[2020-11-13] MEDS ORDERED: Zofran 4 MG/2 ML VIAL IV PRN (22:34)
[2020-11-13] MEDS ORDERED: MILK OF MAGNESIA 30 ML PO PRN (22:34)
[2020-11-13] MEDS ORDERED: MORPHINE SULFATE 2 MG INJ IV PRN (22:34)
[2020-11-13] MEDS ORDERED: Senokot-S Tablet PO PRN (22:34)
[2020-11-13] MEDS ORDERED: HYDROCODONE-ACETAMIN 10-325 MG PO PRN (22:34)
[2020-11-13] MEDS ORDERED: MAALOX ES 30 ML UNIT DOSE PO PRN (22:34)
[2020-11-13] MEDS ORDERED: Neurontin 400 MG PO ONE (23:35)
[2020-11-13] MEDS ORDERED: Lantus Insulin SQ ONE (23:35)
[2020-11-14] MEDS ORDERED: NITRO-BID 2% UD PACKETS TOP SCH (06:00)
[2020-11-14 07:48] LABS: Cholesterol 206 mg/dL (50-200); HDL CHOLESTEROL 34 mg/dL (40-60); LDL, DIRECT 140 mg/dL (30-100); Risk Ratio 6.1; TRIGLYCERIDE 138 mg/dL (30-150); TROPONIN < 0.012 ng/mL (0.000-0.034)
[2020-11-14] MEDS: HUMULIN R SQ PRN ×2 (08:24→11:39)
--- NOTE | 2020-11-14 09:30 | PCM.SSS ---
History of Present Illness - Chief Complaint Chief Complaint: Chest Pain, UTI History of Present Illness: is a 50 year old female pt of Dr. Green with hx of IDDM, morbid obesity, peripheral neuropathy, fibromyalgia, GERD, and possible hx CA who was admitted through ER for CP r/o CA. She was feeling ill the past four days, c/o MCCONNELL, SOB, cough and had taken 3d of a z-shelby that a friend had (with no relief). Came to ER with generalized chest pressure (10/10) with no radiation, no nausea, but with SOB, palpitations, and diaphoresis. She denies fever at home, but had an elevated temperature reportedly in ER. Her CXR was nonacute. First 2 troponins have been negative. EKG with NSR, poor R wave progression but nonacute. UA with 26-50 WBC, so she was started on IV levaquin. Blood cultures are pending x 2. This morning she complains of persistent head congestion. Chest pressure is now 6/10. Her father had heart disease but she cannot recall any details. She has never been a smoker. - Review of Systems Constitutional: Fever Ears, Nose, & Throat: Nose Congestion, Nose Discharge, Sinus Drainage Respiratory: Cough, Short Of Breath Cardiac: Chest Pain, Palpitations Abdominal/Gastrointestinal: Nausea Musculoskeletal: Other (rib pain) Psychological: Anxiety, Depression, No Suicidal Ideations, No Homicidal Ideations All Other Systems: Reviewed and Negative Medications & Allergies Home Medications: Home Medication List Duloxetine HCl [Cymbalta] 60 mg PO DAILY 06/08/16 [History Confirmed 11/13/20] Ergocalciferol (Vitamin D2) [Vitamin D] 50,000 unit PO .WEEKLY 06/08/16 [History Confirmed 11/13/20] Gabapentin 800 mg PO QID 08/28/16 [History Confirmed 11/14/20] Omeprazole 20 MG [Prilosec 20 mg] 20 mg PO DAILY 05/02/17 [History Confirmed 11/13/20] Atorvastatin Calcium 10 mg PO DAILY 11/13/20 [History Confirmed 11/13/20] Chlorthalidone 25 mg PO DAILY 11/13/20 [History Confirmed 11/13/20] Fluoxetine HCl 1 ea DAILY 11/13/20 [History Confirmed 11/13/20] Hydrocodone/Acetaminophen [Hydrocodone-Acetamin 10-325 mg] 1 each PO Q12H PRN PRN 11/13/20 [History Confirmed 11/13/20] Insulin Detemir [Levemir] 40 unit SQ HS 11/13/20 [History Confirmed 11/14/20] Metoprolol Tartrate 50 mg PO DAILY 11/13/20 [History Confirmed 11/13/20] modafiniL [Provigil] 1 ea DAILY 11/13/20 [History Confirmed 11/13/20] Guaifenesin [Humibid] 1,200 mg PO BID PRN 7 Days #15 tab 11/14/20 [Rx] Lactobacillus Acidophilus [Acidophilus Lactobacilli] 1 each PO BID #16 11/14/20 [Rx] Levofloxacin [Levaquin] 500 mg PO DAILY #8 tablet 11/14/20 [Rx] Allergies/Adverse Reactions: Allergies Allergy/AdvReac Type Severity Reaction Status Date / Time Penicillins Allergy Mild Swelling Verified 11/13/20 16:47 - Past Medical History Past Medical History: Yes Neurological History: Peripheral Neuropathy ENT History: Other Cardiac History: Myocardial Infarction (CA) Respiratory History: Other Endocrine Medical History: Diabetes Type II Musculoskelatal History: Fibromyalgia GI Medical History: GERD History: No Pertinent History Pyscho-Social History: Depression Reproductive Disorders: No Pertinent History Comment: sleep apnea - Female History Hx Last Menstrual Period: POST Are you now?: No - Past Surgical History Past Surgical History: Yes Neuro Surgical History: No Pertinent History Cardiac History: No Pertinent History Respiratory Surgery: No Pertinent History GI Surgical History: No Pertinent History Genitourinary Surgical Hx: No Pertinent History Musculskeletal Surgical Hx: No Pertinent History Female Surgical History: Hysterectomy Other Surgical History: cyst removals from occiput region of scalp noted - Social History Smoking Status: Never smoker Exposure to second hand smoke: No Alcohol: Rarely Drug Use: none - Physical Exam Vital Signs: Vital Signs - 24 hr Temp Pulse Resp BP Pulse Ox 11/14/20 07:41 96.2 F 75 20 137/69 94 L 11/14/20 05:11 80 18 95 11/14/20 04:00 97.2 F 74 18 132/67 94 L 11/14/20 00:00 95 11/13/20 22:53 97.3 F 80 18 119/57 94 L 09/04/21 22:10 85 18 116/78 95 11/13/20 20:50 88 18 121/85 95 11/13/20 19:00 82 105/69 97 11/13/20 18:16 80 22 120/77 96 11/13/20 17:44 80 20 145/99 96 11/13/20 16:46 20 97 11/13/20 16:40 98.2 F 82 20 131/94 95 General Appearance: no apparent distress, alert Neurologic Exam: oriented x 3, cooperative Eye Exam: eyes nml inspection Ears, Nose, Throat Exam: normal ENT inspection, TMs normal, pharynx normal, moist mucous membranes, other (maxillary and frontal sinuses nttp bilat) Neck Exam: normal inspection, non-tender, No lymphadenopathy Respiratory Exam: normal breath sounds, lungs clear, No crackles/rales, No rhonchi, No wheezing Cardiovascular Exam: regular rate/rhythm, normal heart sounds, No murmur Gastrointestinal/Abdomen Exam: soft, normal bowel sounds, No tenderness, No distention, No mass, No guarding, No rebound Back Exam: normal inspection, No CVA tenderness, No rash Extremity Exam: normal inspection, No pedal edema, No swelling Skin Exam: normal color, warm, dry, No rash Results - Labs Lab/Micro Results: Lab Results-Last 24 Hours 11/13/20 11/13/20 11/13/20 Range/Units 17:34 17:45 17:45 WBC 11.4 H (4.0-10.5) K/mm3 RBC 5.24 (4.1-5.4) M/mm3 Hgb 15.2 (12.0-16.0) gm/dl Hct 45.7 (35-47) % MCV 87.2 (78-100) fl MCH 29.0 (26-32) pg MCHC 33.3 (32-36) g/dl RDW 13.2 (11.5-14.0) % Plt Count 408 (150-450) K/mm3 MPV 9.5 (7.5-11.0) fl Segmented Neutrophils 78 H (36.0-66.0) % Band Neutrophils 1 (0.0-2.0) % Lymphocytes (Manual) 11 L (24-44) % Monocytes (Manual) 5 (0.0-12.0) % Eosinophils (Manual) 3 (0.00-3.0) % Basophils (Manual) 2 H (0.0-1.0) % Platelet Estimate NORMAL (NORMAL) RBC Morphology NORMAL D-Dimer (215-500) ng/mL Sodium (137-145) mmol/L Potassium (3.5-5.1) mmol/L Chloride (98-107) mmol/L Carbon Dioxide (22-30) mmol/L Anion Gap (5-15) MEQ/L BUN (7-17) mg/dL Creatinine (0.52-1.04) mg/dL Estimated GFR ML/MIN Glucose (74-106) mg/dL POC Glucometer (74 to 106) mg/dL Hemoglobin A1c (4.5-6.0) % Lactic Acid 2.7 H (0.4-2.0) Calcium (8.4-10.2) mg/dL Total Bilirubin (0.2-1.3) mg/dL AST (14-36) U/L ALT (0-35) U/L Alkaline Phosphatase (38-126) U/L Troponin I (0.000-0.034) ng/mL Serum Total Protein (6.3-8.2) g/dL Albumin (3.5-5.0) g/dL Triglycerides (30-150) mg/dL Cholesterol (50-200) mg/dL LDL Cholesterol (30-100) mg/dL HDL Cholesterol (40-60) mg/dL Heart Disease Risk Ratio Urine Color YELLOW (YELLOW) Urine Appearance SLIGHTLY CLOUDY (CLEAR) Urine pH 5.0 (5-6) Ur Specific Outlook 1.024 (1.005-1.025) Urine Protein NEGATIVE (Negative) Urine Ketones NEGATIVE (NEGATIVE) Urine Blood SMALL (0-5) Jacob/ul Urine Nitrite NEGATIVE (NEGATIVE) Urine Bilirubin NEGATIVE (NEGATIVE) Urine Urobilinogen NEGATIVE (0-1) mg/dL Ur Leukocyte Esterase LARGE (NEGATIVE) Urine WBC (Auto) 26-50 (0-5) /HPF Urine RBC (Auto) 3-5 (0-2) /HPF U Epithel Cells (Auto) RARE (FEW) /HPF Urine Bacteria (Auto) NONE SEEN (NEGATIVE) /HPF U Non-Squamous Epi Cells RARE (FEW) /HPF Urine Mucus (Auto) SLIGHT (NEGATIVE) /HPF Urine Culture Reflexed YES (NO) Urine Glucose >=500 (NEGATIVE) mg/dL Monoscreen (Negative) Influenza Type A Ag (NEGATIVE) Influenza Type B Ag (NEGATIVE) SARS-CoV-2 (PCR) (NEGATIVE) Group A Strep Antibody (NEGATIVE) 11/13/20 11/13/20 11/13/20 Range/Units 17:45 17:45 17:45 WBC (4.0-10.5) K/mm3 RBC (4.1-5.4) M/mm3 Hgb (12.0-16.0) gm/dl Hct (35-47) % MCV (78-100) fl MCH (26-32) pg MCHC (32-36) g/dl RDW (11.5-14.0) % Plt Count (150-450) K/mm3 MPV (7.5-11.0) fl Segmented Neutrophils (36.0-66.0) % Band Neutrophils (0.0-2.0) % Lymphocytes (Manual) (24-44) % Monocytes (Manual) (0.0-12.0) % Eosinophils (Manual) (0.00-3.0) % Basophils (Manual) (0.0-1.0) % Platelet Estimate (NORMAL) RBC Morphology D-Dimer 495 (215-500) ng/mL Sodium 138 (137-145) mmol/L Potassium 3.8 (3.5-5.1) mmol/L Chloride 100 (98-107) mmol/L Carbon Dioxide 23 (22-30) mmol/L Anion Gap 18.5 H (5-15) MEQ/L BUN 18 H (7-17) mg/dL Creatinine 0.83 (0.52-1.04) mg/dL Estimated GFR > 60.0 ML/MIN Glucose 237 H (74-106) mg/dL POC Glucometer (74 to 106) mg/dL Hemoglobin A1c (4.5-6.0) % Lactic Acid (0.4-2.0) Calcium 9.9 (8.4-10.2) mg/dL Total Bilirubin 0.80 (0.2-1.3) mg/dL AST 33 (14-36) U/L ALT 26 (0-35) U/L Alkaline Phosphatase 125 (38-126) U/L Troponin I (0.000-0.034) ng/mL Serum Total Protein 8.6 H (6.3-8.2) g/dL Albumin 4.5 (3.5-5.0) g/dL Triglycerides (30-150) mg/dL Cholesterol (50-200) mg/dL LDL Cholesterol (30-100) mg/dL HDL Cholesterol (40-60) mg/dL Heart Disease Risk Ratio Urine Color (YELLOW) Urine Appearance (CLEAR) Urine pH (5-6) Ur Specific Outlook (1.005-1.025) Urine Protein (Negative) Urine Ketones (NEGATIVE) Urine Blood (0-5) Jacob/ul Urine Nitrite (NEGATIVE) Urine Bilirubin (NEGATIVE) Urine Urobilinogen (0-1) mg/dL Ur Leukocyte Esterase (NEGATIVE) Urine WBC (Auto) (0-5) /HPF Urine RBC (Auto) (0-2) /HPF U Epithel Cells (Auto) (FEW) /HPF Urine Bacteria (Auto) (NEGATIVE) /HPF U Non-Squamous Epi Cells (FEW) /HPF Urine Mucus (Auto) (NEGATIVE) /HPF Urine Culture Reflexed (NO) Urine Glucose (NEGATIVE) mg/dL Monoscreen NEGATIVE (Negative) Influenza Type A Ag (NEGATIVE) Influenza Type B Ag (NEGATIVE) SARS-CoV-2 (PCR) (NEGATIVE) Group A Strep Antibody (NEGATIVE) 11/13/20 11/13/20 11/13/20 Range/Units 17:45 17:59 17:59 WBC (4.0-10.5) K/mm3 RBC (4.1-5.4) M/mm3 Hgb (12.0-16.0) gm/dl Hct (35-47) % MCV (78-100) fl MCH (26-32) pg MCHC (32-36) g/dl RDW (11.5-14.0) % Plt Count (150-450) K/mm3 MPV (7.5-11.0) fl Segmented Neutrophils (36.0-66.0) % Band Neutrophils (0.0-2.0) % Lymphocytes (Manual) (24-44) % Monocytes (Manual) (0.0-12.0) % Eosinophils (Manual) (0.00-3.0) % Basophils (Manual) (0.0-1.0) % Platelet Estimate (NORMAL) RBC Morphology D-Dimer (215-500) ng/mL Sodium (137-145) mmol/L Potassium (3.5-5.1) mmol/L Chloride (98-107) mmol/L Carbon Dioxide (22-30) mmol/L Anion Gap (5-15) MEQ/L BUN (7-17) mg/dL Creatinine (0.52-1.04) mg/dL Estimated GFR ML/MIN Glucose (74-106) mg/dL POC Glucometer (74 to 106) mg/dL Hemoglobin A1c (4.5-6.0) % Lactic Acid (0.4-2.0) Calcium (8.4-10.2) mg/dL Total Bilirubin (0.2-1.3) mg/dL AST (14-36) U/L ALT (0-35) U/L Alkaline Phosphatase (38-126) U/L Troponin I < 0.012 (0.000-0.034) ng/mL Serum Total Protein (6.3-8.2) g/dL Albumin (3.5-5.0) g/dL Triglycerides (30-150) mg/dL Cholesterol (50-200) mg/dL LDL Cholesterol (30-100) mg/dL HDL Cholesterol (40-60) mg/dL Heart Disease Risk Ratio Urine Color (YELLOW) Urine Appearance (CLEAR) Urine pH (5-6) Ur Specific Outlook (1.005-1.025) Urine Protein (Negative) Urine Ketones (NEGATIVE) Urine Blood (0-5) Jacob/ul Urine Nitrite (NEGATIVE) Urine Bilirubin (NEGATIVE) Urine Urobilinogen (0-1) mg/dL Ur Leukocyte Esterase (NEGATIVE) Urine WBC (Auto) (0-5) /HPF Urine RBC (Auto) (0-2) /HPF U Epithel Cells (Auto) (FEW) /HPF Urine Bacteria (Auto) (NEGATIVE) /HPF U Non-Squamous Epi Cells (FEW) /HPF Urine Mucus (Auto) (NEGATIVE) /HPF Urine Culture Reflexed (NO) Urine Glucose (NEGATIVE) mg/dL Monoscreen (Negative) Influenza Type A Ag NEGATIVE (NEGATIVE) Influenza Type B Ag NEGATIVE (NEGATIVE) SARS-CoV-2 (PCR) (NEGATIVE) Group A Strep Antibody NOT DETECTED (NEGATIVE) 11/13/20 11/13/20 11/13/20 Range/Units 19:50 20:48 20:53 WBC (4.0-10.5) K/mm3 RBC (4.1-5.4) M/mm3 Hgb (12.0-16.0) gm/dl Hct (35-47) % MCV (78-100) fl MCH (26-32) pg MCHC (32-36) g/dl RDW (11.5-14.0) % Plt Count (150-450) K/mm3 MPV (7.5-11.0) fl Segmented Neutrophils (36.0-66.0) % Band Neutrophils (0.0-2.0) % Lymphocytes (Manual) (24-44) % Monocytes (Manual) (0.0-12.0) % Eosinophils (Manual) (0.00-3.0) % Basophils (Manual) (0.0-1.0) % Platelet Estimate (NORMAL) RBC Morphology D-Dimer (215-500) ng/mL Sodium (137-145) mmol/L Potassium (3.5-5.1) mmol/L Chloride (98-107) mmol/L Carbon Dioxide (22-30) mmol/L Anion Gap (5-15) MEQ/L BUN (7-17) mg/dL Creatinine (0.52-1.04) mg/dL Estimated GFR ML/MIN Glucose (74-106) mg/dL POC Glucometer 263 H (74 to 106) mg/dL Hemoglobin A1c (4.5-6.0) % Lactic Acid 2.4 H (0.4-2.0) Calcium (8.4-10.2) mg/dL Total Bilirubin (0.2-1.3) mg/dL AST (14-36) U/L ALT (0-35) U/L Alkaline Phosphatase (38-126) U/L Troponin I (0.000-0.034) ng/mL Serum Total Protein (6.3-8.2) g/dL Albumin (3.5-5.0) g/dL Triglycerides (30-150) mg/dL Cholesterol (50-200) mg/dL LDL Cholesterol (30-100) mg/dL HDL Cholesterol (40-60) mg/dL Heart Disease Risk Ratio Urine Color (YELLOW) Urine Appearance (CLEAR) Urine pH (5-6) Ur Specific Outlook (1.005-1.025) Urine Protein (Negative) Urine Ketones (NEGATIVE) Urine Blood (0-5) Jacob/ul Urine Nitrite (NEGATIVE) Urine Bilirubin (NEGATIVE) Urine Urobilinogen (0-1) mg/dL Ur Leukocyte Esterase (NEGATIVE) Urine WBC (Auto) (0-5) /HPF Urine RBC (Auto) (0-2) /HPF U Epithel Cells (Auto) (FEW) /HPF Urine Bacteria (Auto) (NEGATIVE) /HPF U Non-Squamous Epi Cells (FEW) /HPF Urine Mucus (Auto) (NEGATIVE) /HPF Urine Culture Reflexed (NO) Urine Glucose (NEGATIVE) mg/dL Monoscreen (Negative) Influenza Type A Ag (NEGATIVE) Influenza Type B Ag (NEGATIVE) SARS-CoV-2 (PCR) NEGATIVE (NEGATIVE) Group A Strep Antibody (NEGATIVE) 11/13/20 11/14/20 11/14/20 Range/Units 22:00 05:44 07:36 WBC (4.0-10.5) K/mm3 RBC (4.1-5.4) M/mm3 Hgb (12.0-16.0) gm/dl Hct (35-47) % MCV (78-100) fl MCH (26-32) pg MCHC (32-36) g/dl RDW (11.5-14.0) % Plt Count (150-450) K/mm3 MPV (7.5-11.0) fl Segmented Neutrophils (36.0-66.0) % Band Neutrophils (0.0-2.0) % Lymphocytes (Manual) (24-44) % Monocytes (Manual) (0.0-12.0) % Eosinophils (Manual) (0.00-3.0) % Basophils (Manual) (0.0-1.0) % Platelet Estimate (NORMAL) RBC Morphology D-Dimer (215-500) ng/mL Sodium (137-145) mmol/L Potassium (3.5-5.1) mmol/L Chloride (98-107) mmol/L Carbon Dioxide (22-30) mmol/L Anion Gap (5-15) MEQ/L BUN (7-17) mg/dL Creatinine (0.52-1.04) mg/dL Estimated GFR ML/MIN Glucose (74-106) mg/dL POC Glucometer 302 H (74 to 106) mg/dL Hemoglobin A1c (4.5-6.0) % Lactic Acid (0.4-2.0) Calcium (8.4-10.2) mg/dL Total Bilirubin (0.2-1.3) mg/dL AST (14-36) U/L ALT (0-35) U/L Alkaline Phosphatase (38-126) U/L Troponin I < 0.012 < 0.012 (0.000-0.034) ng/mL Serum Total Protein (6.3-8.2) g/dL Albumin (3.5-5.0) g/dL Triglycerides 138 (30-150) mg/dL Cholesterol 206 H (50-200) mg/dL LDL Cholesterol 140 H (30-100) mg/dL HDL Cholesterol 34 L (40-60) mg/dL Heart Disease Risk Ratio 6.1 Urine Color (YELLOW) Urine Appearance (CLEAR) Urine pH (5-6) Ur Specific Outlook (1.005-1.025) Urine Protein (Negative) Urine Ketones (NEGATIVE) Urine Blood (0-5) Jacob/ul Urine Nitrite (NEGATIVE) Urine Bilirubin (NEGATIVE) Urine Urobilinogen (0-1) mg/dL Ur Leukocyte Esterase (NEGATIVE) Urine WBC (Auto) (0-5) /HPF Urine RBC (Auto) (0-2) /HPF U Epithel Cells (Auto) (FEW) /HPF Urine Bacteria (Auto) (NEGATIVE) /HPF U Non-Squamous Epi Cells (FEW) /HPF Urine Mucus (Auto) (NEGATIVE) /HPF Urine Culture Reflexed (NO) Urine Glucose (NEGATIVE) mg/dL Monoscreen (Negative) Influenza Type A Ag (NEGATIVE) Influenza Type B Ag (NEGATIVE) SARS-CoV-2 (PCR) (NEGATIVE) Group A Strep Antibody (NEGATIVE) 11/14/20 Range/Units 08:00 WBC (4.0-10.5) K/mm3 RBC (4.1-5.4) M/mm3 Hgb (12.0-16.0) gm/dl Hct (35-47) % MCV (78-100) fl MCH (26-32) pg MCHC (32-36) g/dl RDW (11.5-14.0) % Plt Count (150-450) K/mm3 MPV (7.5-11.0) fl Segmented Neutrophils (36.0-66.0) % Band Neutrophils (0.0-2.0) % Lymphocytes (Manual) (24-44) % Monocytes (Manual) (0.0-12.0) % Eosinophils (Manual) (0.00-3.0) % Basophils (Manual) (0.0-1.0) % Platelet Estimate (NORMAL) RBC Morphology D-Dimer (215-500) ng/mL Sodium (137-145) mmol/L Potassium (3.5-5.1) mmol/L Chloride (98-107) mmol/L Carbon Dioxide (22-30) mmol/L Anion Gap (5-15) MEQ/L BUN (7-17) mg/dL Creatinine (0.52-1.04) mg/dL Estimated GFR ML/MIN Glucose (74-106) mg/dL POC Glucometer (74 to 106) mg/dL Hemoglobin A1c 8.03 H (4.5-6.0) % Lactic Acid (0.4-2.0) Calcium (8.4-10.2) mg/dL Total Bilirubin (0.2-1.3) mg/dL AST (14-36) U/L ALT (0-35) U/L Alkaline Phosphatase (38-126) U/L Troponin I (0.000-0.034) ng/mL Serum Total Protein (6.3-8.2) g/dL Albumin (3.5-5.0) g/dL Triglycerides (30-150) mg/dL Cholesterol (50-200) mg/dL LDL Cholesterol (30-100) mg/dL HDL Cholesterol (40-60) mg/dL Heart Disease Risk Ratio Urine Color (YELLOW) Urine Appearance (CLEAR) Urine pH (5-6) Ur Specific Outlook (1.005-1.025) Urine Protein (Negative) Urine Ketones (NEGATIVE) Urine Blood (0-5) Jacob/ul Urine Nitrite (NEGATIVE) Urine Bilirubin (NEGATIVE) Urine Urobilinogen (0-1) mg/dL Ur Leukocyte Esterase (NEGATIVE) Urine WBC (Auto) (0-5) /HPF Urine RBC (Auto) (0-2) /HPF U Epithel Cells (Auto) (FEW) /HPF Urine Bacteria (Auto) (NEGATIVE) /HPF U Non-Squamous Epi Cells (FEW) /HPF Urine Mucus (Auto) (NEGATIVE) /HPF Urine Culture Reflexed (NO) Urine Glucose (NEGATIVE) mg/dL Monoscreen (Negative) Influenza Type A Ag (NEGATIVE) Influenza Type B Ag (NEGATIVE) SARS-CoV-2 (PCR) (NEGATIVE) Group A Strep Antibody (NEGATIVE) Accuchecks Date 11/14/20 Date 11/13/20 Time 07:40 Time 20:53 - Radiology Impressions Radiology Exams & Impressions: Radiology Procedures Category Date Time Status CHEST 1 VIEW (PORTABLE) Stat Exams 11/13/20 17:25 Completed - Other Procedures and Tests Respiratory Therapy 11/14/20 05:00 EKG ROUTINE 11/15/20 05:00 EKG DAILY 11/16/20 05:00 EKG DAILY 11/17/20 05:00 EKG DAILY Assessment/Plan (1) Chest pain Current Visit: No Status: Acute Qualifiers: Chest pain type: unspecified Qualified Code(s): R07.9 - Chest pain, unspecified Assessment & Plan: If all troponins are negative, will discharge to home and have her F/u with Dr. Green regarding need for outpatient stress testing. Code(s): R07.9 - CHEST PAIN, UNSPECIFIED (2) UTI (urinary tract infection) Current Visit: Yes Status: Acute Qualifiers: Urinary tract infection type: acute cystitis Hematuria presence: without he maturia Qualified Code(s): N30.00 - Acute cystitis without hematuria Code(s): N39.0 - URINARY TRACT INFECTION, SITE NOT SPECIFIED (3) Sinusitis Current Visit: Yes Status: Acute Qualifiers: Sinusitis location: unspecified location Chronicity: acute Recurrence: not specified as recurrent Qualified Code(s): J01.90 - Acute sinusitis, unspecified Assessment & Plan: Home on levaquin. Code(s): J32.9 - CHRONIC SINUSITIS, UNSPECIFIED (4) IDDM (insulin dependent diabetes mellitus) Current Visit: Yes Status: Chronic Code(s): FZX8878 - (5) Morbid obesity Current Visit: Yes Status: Chronic Code(s): E66.01 - MORBID (SEVERE) OBESITY DUE TO EXCESS CALORIES (6) Peripheral neuropathy Current Visit: Yes Status: Chronic Qualifiers: Peripheral neuropathy type: polyneuropathy associated with underlying disease Qualified Code(s): G63 - Polyneuropathy in diseases classified elsewhere Code(s): G62.9 - POLYNEUROPATHY, UNSPECIFIED (7) Fibromyalgia Current Visit: Yes Status: Chronic (8) GERD (gastroesophageal reflux disease) Current Visit: Yes Status: Chronic Qualifiers: Esophagitis presence: without esophagitis Qualified Code(s): K21.9 - Gastro-esophageal reflux disease without esophagitis Code(s): K21.9 - GASTRO-ESOPHAGEAL REFLUX DISEASE WITHOUT ESOPHAGITIS Hospital Summary - Hospital Course Hospital Course: Pt admitted through ER for CP r/o CA. If all her troponins are negative, will discharge her to home. She was found to have possible UTI and is coughing up green sputum - will tx at home for possible UTI and probable sinusitis. F/u with Dr. Green in 1 week. - Vitals & Intake/Output Vital Signs: Vital Signs Temperature 96.2 F 11/14/20 07:41 Pulse Rate 75 11/14/20 07:41 Respiratory Rate 20 11/14/20 07:41 Blood Pressure 137/69 11/14/20 07:41 O2 Sat by Pulse Oximetry 94 L 11/14/20 07:41 Intake & Output: Intake & Output 11/11/20 11/12/20 11/13/20 11/14/20 11:59 11:59 11:59 11:59 Weight 85.2 kg - Lab Result Diagrams: 11/13/20 17:45 11/13/20 17:45 Lab Results-Last 24 Hrs: Lab Results-Last 24 Hours 11/13/20 11/13/20 11/13/20 Range/Units 17:34 17:45 17:45 WBC 11.4 H (4.0-10.5) K/mm3 RBC 5.24 (4.1-5.4) M/mm3 Hgb 15.2 (12.0-16.0) gm/dl Hct 45.7 (35-47) % MCV 87.2 (78-100) fl MCH 29.0 (26-32) pg MCHC 33.3 (32-36) g/dl RDW 13.2 (11.5-14.0) % Plt Count 408 (150-450) K/mm3 MPV 9.5 (7.5-11.0) fl Segmented Neutrophils 78 H (36.0-66.0) % Band Neutrophils 1 (0.0-2.0) % Lymphocytes (Manual) 11 L (24-44) % Monocytes (Manual) 5 (0.0-12.0) % Eosinophils (Manual) 3 (0.00-3.0) % Basophils (Manual) 2 H (0.0-1.0) % Platelet Estimate NORMAL (NORMAL) RBC Morphology NORMAL D-Dimer (215-500) ng/mL Sodium (137-145) mmol/L Potassium (3.5-5.1) mmol/L Chloride (98-107) mmol/L Carbon Dioxide (22-30) mmol/L Anion Gap (5-15) MEQ/L BUN (7-17) mg/dL Creatinine (0.52-1.04) mg/dL Estimated GFR ML/MIN Glucose (74-106) mg/dL POC Glucometer (74 to 106) mg/dL Hemoglobin A1c (4.5-6.0) % Lactic Acid 2.7 H (0.4-2.0) Calcium (8.4-10.2) mg/dL Total Bilirubin (0.2-1.3) mg/dL AST (14-36) U/L ALT (0-35) U/L Alkaline Phosphatase (38-126) U/L Troponin I (0.000-0.034) ng/mL Serum Total Protein (6.3-8.2) g/dL Albumin (3.5-5.0) g/dL Triglycerides (30-150) mg/dL Cholesterol (50-200) mg/dL LDL Cholesterol (30-100) mg/dL HDL Cholesterol (40-60) mg/dL Heart Disease Risk Ratio Urine Color YELLOW (YELLOW) Urine Appearance SLIGHTLY CLOUDY (CLEAR) Urine pH 5.0 (5-6) Ur Specific Outlook 1.024 (1.005-1.025) Urine Protein NEGATIVE (Negative) Urine Ketones NEGATIVE (NEGATIVE) Urine Blood SMALL (0-5) Jacob/ul Urine Nitrite NEGATIVE (NEGATIVE) Urine Bilirubin NEGATIVE (NEGATIVE) Urine Urobilinogen NEGATIVE (0-1) mg/dL Ur Leukocyte Esterase LARGE (NEGATIVE) Urine WBC (Auto) 26-50 (0-5) /HPF Urine RBC (Auto) 3-5 (0-2) /HPF U Epithel Cells (Auto) RARE (FEW) /HPF Urine Bacteria (Auto) NONE SEEN (NEGATIVE) /HPF U Non-Squamous Epi Cells RARE (FEW) /HPF Urine Mucus (Auto) SLIGHT (NEGATIVE) /HPF Urine Culture Reflexed YES (NO) Urine Glucose >=500 (NEGATIVE) mg/dL Monoscreen (Negative) Influenza Type A Ag (NEGATIVE) Influenza Type B Ag (NEGATIVE) SARS-CoV-2 (PCR) (NEGATIVE) Group A Strep Antibody (NEGATIVE) 11/13/20 11/13/20 11/13/20 Range/Units 17:45 17:45 17:45 WBC (4.0-10.5) K/mm3 RBC (4.1-5.4) M/mm3 Hgb (12.0-16.0) gm/dl Hct (35-47) % MCV (78-100) fl MCH (26-32) pg MCHC (32-36) g/dl RDW (11.5-14.0) % Plt Count (150-450) K/mm3 MPV (7.5-11.0) fl Segmented Neutrophils (36.0-66.0) % Band Neutrophils (0.0-2.0) % Lymphocytes (Manual) (24-44) % Monocytes (Manual) (0.0-12.0) % Eosinophils (Manual) (0.00-3.0) % Basophils (Manual) (0.0-1.0) % Platelet Estimate (NORMAL) RBC Morphology D-Dimer 495 (215-500) ng/mL Sodium 138 (137-145) mmol/L Potassium 3.8 (3.5-5.1) mmol/L Chloride 100 (98-107) mmol/L Carbon Dioxide 23 (22-30) mmol/L Anion Gap 18.5 H (5-15) MEQ/L BUN 18 H (7-17) mg/dL Creatinine 0.83 (0.52-1.04) mg/dL Estimated GFR > 60.0 ML/MIN Glucose 237 H (74-106) mg/dL POC Glucometer (74 to 106) mg/dL Hemoglobin A1c (4.5-6.0) % Lactic Acid (0.4-2.0) Calcium 9.9 (8.4-10.2) mg/dL Total Bilirubin 0.80 (0.2-1.3) mg/dL AST 33 (14-36) U/L ALT 26 (0-35) U/L Alkaline Phosphatase 125 (38-126) U/L Troponin I (0.000-0.034) ng/mL Serum Total Protein 8.6 H (6.3-8.2) g/dL Albumin 4.5 (3.5-5.0) g/dL Triglycerides (30-150) mg/dL Cholesterol (50-200) mg/dL LDL Cholesterol (30-100) mg/dL HDL Cholesterol (40-60) mg/dL Heart Disease Risk Ratio Urine Color (YELLOW) Urine Appearance (CLEAR) Urine pH (5-6) Ur Specific Outlook (1.005-1.025) Urine Protein (Negative) Urine Ketones (NEGATIVE) Urine Blood (0-5) Jacob/ul Urine Nitrite (NEGATIVE) Urine Bilirubin (NEGATIVE) Urine Urobilinogen (0-1) mg/dL Ur Leukocyte Esterase (NEGATIVE) Urine WBC (Auto) (0-5) /HPF Urine RBC (Auto) (0-2) /HPF U Epithel Cells (Auto) (FEW) /HPF Urine Bacteria (Auto) (NEGATIVE) /HPF U Non-Squamous Epi Cells (FEW) /HPF Urine Mucus (Auto) (NEGATIVE) /HPF Urine Culture Reflexed (NO) Urine Glucose (NEGATIVE) mg/dL Monoscreen NEGATIVE (Negative) Influenza Type A Ag (NEGATIVE) Influenza Type B Ag (NEGATIVE) SARS-CoV-2 (PCR) (NEGATIVE) Group A Strep Antibody (NEGATIVE) 11/13/20 11/13/20 11/13/20 Range/Units 17:45 17:59 17:59 WBC (4.0-10.5) K/mm3 RBC (4.1-5.4) M/mm3 Hgb (12.0-16.0) gm/dl Hct (35-47) % MCV (78-100) fl MCH (26-32) pg MCHC (32-36) g/dl RDW (11.5-14.0) % Plt Count (150-450) K/mm3 MPV (7.5-11.0) fl Segmented Neutrophils (36.0-66.0) % Band Neutrophils (0.0-2.0) % Lymphocytes (Manual) (24-44) % Monocytes (Manual) (0.0-12.0) % Eosinophils (Manual) (0.00-3.0) % Basophils (Manual) (0.0-1.0) % Platelet Estimate (NORMAL) RBC Morphology D-Dimer (215-500) ng/mL Sodium (137-145) mmol/L Potassium (3.5-5.1) mmol/L Chloride (98-107) mmol/L Carbon Dioxide (22-30) mmol/L Anion Gap (5-15) MEQ/L BUN (7-17) mg/dL Creatinine (0.52-1.04) mg/dL Estimated GFR ML/MIN Glucose (74-106) mg/dL POC Glucometer (74 to 106) mg/dL Hemoglobin A1c (4.5-6.0) % Lactic Acid (0.4-2.0) Calcium (8.4-10.2) mg/dL Total Bilirubin (0.2-1.3) mg/dL AST (14-36) U/L ALT (0-35) U/L Alkaline Phosphatase (38-126) U/L Troponin I < 0.012 (0.000-0.034) ng/mL Serum Total Protein (6.3-8.2) g/dL Albumin (3.5-5.0) g/dL Triglycerides (30-150) mg/dL Cholesterol (50-200) mg/dL LDL Cholesterol (30-100) mg/dL HDL Cholesterol (40-60) mg/dL Heart Disease Risk Ratio Urine Color (YELLOW) Urine Appearance (CLEAR) Urine pH (5-6) Ur Specific Outlook (1.005-1.025) Urine Protein (Negative) Urine Ketones (NEGATIVE) Urine Blood (0-5) Jacob/ul Urine Nitrite (NEGATIVE) Urine Bilirubin (NEGATIVE) Urine Urobilinogen (0-1) mg/dL Ur Leukocyte Esterase (NEGATIVE) Urine WBC (Auto) (0-5) /HPF Urine RBC (Auto) (0-2) /HPF U Epithel Cells (Auto) (FEW) /HPF Urine Bacteria (Auto) (NEGATIVE) /HPF U Non-Squamous Epi Cells (FEW) /HPF Urine Mucus (Auto) (NEGATIVE) /HPF Urine Culture Reflexed (NO) Urine Glucose (NEGATIVE) mg/dL Monoscreen (Negative) Influenza Type A Ag NEGATIVE (NEGATIVE) Influenza Type B Ag NEGATIVE (NEGATIVE) SARS-CoV-2 (PCR) (NEGATIVE) Group A Strep Antibody NOT DETECTED (NEGATIVE) 11/13/20 11/13/20 11/13/20 Range/Units 19:50 20:48 20:53 WBC (4.0-10.5) K/mm3 RBC (4.1-5.4) M/mm3 Hgb (12.0-16.0) gm/dl Hct (35-47) % MCV (78-100) fl MCH (26-32) pg MCHC (32-36) g/dl RDW (11.5-14.0) % Plt Count (150-450) K/mm3 MPV (7.5-11.0) fl Segmented Neutrophils (36.0-66.0) % Band Neutrophils (0.0-2.0) % Lymphocytes (Manual) (24-44) % Monocytes (Manual) (0.0-12.0) % Eosinophils (Manual) (0.00-3.0) % Basophils (Manual) (0.0-1.0) % Platelet Estimate (NORMAL) RBC Morphology D-Dimer (215-500) ng/mL Sodium (137-145) mmol/L Potassium (3.5-5.1) mmol/L Chloride (98-107) mmol/L Carbon Dioxide (22-30) mmol/L Anion Gap (5-15) MEQ/L BUN (7-17) mg/dL Creatinine (0.52-1.04) mg/dL Estimated GFR ML/MIN Glucose (74-106) mg/dL POC Glucometer 263 H (74 to 106) mg/dL Hemoglobin A1c (4.5-6.0) % Lactic Acid 2.4 H (0.4-2.0) Calcium (8.4-10.2) mg/dL Total Bilirubin (0.2-1.3) mg/dL AST (14-36) U/L ALT (0-35) U/L Alkaline Phosphatase (38-126) U/L Troponin I (0.000-0.034) ng/mL Serum Total Protein (6.3-8.2) g/dL Albumin (3.5-5.0) g/dL Triglycerides (30-150) mg/dL Cholesterol (50-200) mg/dL LDL Cholesterol (30-100) mg/dL HDL Cholesterol (40-60) mg/dL Heart Disease Risk Ratio Urine Color (YELLOW) Urine Appearance (CLEAR) Urine pH (5-6) Ur Specific Outlook (1.005-1.025) Urine Protein (Negative) Urine Ketones (NEGATIVE) Urine Blood (0-5) Jacob/ul Urine Nitrite (NEGATIVE) Urine Bilirubin (NEGATIVE) Urine Urobilinogen (0-1) mg/dL Ur Leukocyte Esterase (NEGATIVE) Urine WBC (Auto) (0-5) /HPF Urine RBC (Auto) (0-2) /HPF U Epithel Cells (Auto) (FEW) /HPF Urine Bacteria (Auto) (NEGATIVE) /HPF U Non-Squamous Epi Cells (FEW) /HPF Urine Mucus (Auto) (NEGATIVE) /HPF Urine Culture Reflexed (NO) Urine Glucose (NEGATIVE) mg/dL Monoscreen (Negative) Influenza Type A Ag (NEGATIVE) Influenza Type B Ag (NEGATIVE) SARS-CoV-2 (PCR) NEGATIVE (NEGATIVE) Group A Strep Antibody (NEGATIVE) 11/13/20 11/14/20 11/14/20 Range/Units 22:00 05:44 07:36 WBC (4.0-10.5) K/mm3 RBC (4.1-5.4) M/mm3 Hgb (12.0-16.0) gm/dl Hct (35-47) % MCV (78-100) fl MCH (26-32) pg MCHC (32-36) g/dl RDW (11.5-14.0) % Plt Count (150-450) K/mm3 MPV (7.5-11.0) fl Segmented Neutrophils (36.0-66.0) % Band Neutrophils (0.0-2.0) % Lymphocytes (Manual) (24-44) % Monocytes (Manual) (0.0-12.0) % Eosinophils (Manual) (0.00-3.0) % Basophils (Manual) (0.0-1.0) % Platelet Estimate (NORMAL) RBC Morphology D-Dimer (215-500) ng/mL Sodium (137-145) mmol/L Potassium (3.5-5.1) mmol/L Chloride (98-107) mmol/L Carbon Dioxide (22-30) mmol/L Anion Gap (5-15) MEQ/L BUN (7-17) mg/dL Creatinine (0.52-1.04) mg/dL Estimated GFR ML/MIN Glucose (74-106) mg/dL POC Glucometer 302 H (74 to 106) mg/dL Hemoglobin A1c (4.5-6.0) % Lactic Acid (0.4-2.0) Calcium (8.4-10.2) mg/dL Total Bilirubin (0.2-1.3) mg/dL AST (14-36) U/L ALT (0-35) U/L Alkaline Phosphatase (38-126) U/L Troponin I < 0.012 < 0.012 (0.000-0.034) ng/mL Serum Total Protein (6.3-8.2) g/dL Albumin (3.5-5.0) g/dL Triglycerides 138 (30-150) mg/dL Cholesterol 206 H (50-200) mg/dL LDL Cholesterol 140 H (30-100) mg/dL HDL Cholesterol 34 L (40-60) mg/dL Heart Disease Risk Ratio 6.1 Urine Color (YELLOW) Urine Appearance (CLEAR) Urine pH (5-6) Ur Specific Outlook (1.005-1.025) Urine Protein (Negative) Urine Ketones (NEGATIVE) Urine Blood (0-5) Jacob/ul Urine Nitrite (NEGATIVE) Urine Bilirubin (NEGATIVE) Urine Urobilinogen (0-1) mg/dL Ur Leukocyte Esterase (NEGATIVE) Urine WBC (Auto) (0-5) /HPF Urine RBC (Auto) (0-2) /HPF U Epithel Cells (Auto) (FEW) /HPF Urine Bacteria (Auto) (NEGATIVE) /HPF U Non-Squamous Epi Cells (FEW) /HPF Urine Mucus (Auto) (NEGATIVE) /HPF Urine Culture Reflexed (NO) Urine Glucose (NEGATIVE) mg/dL Monoscreen (Negative) Influenza Type A Ag (NEGATIVE) Influenza Type B Ag (NEGATIVE) SARS-CoV-2 (PCR) (NEGATIVE) Group A Strep Antibody (NEGATIVE) 11/14/20 Range/Units 08:00 WBC (4.0-10.5) K/mm3 RBC (4.1-5.4) M/mm3 Hgb (12.0-16.0) gm/dl Hct (35-47) % MCV (78-100) fl MCH (26-32) pg MCHC (32-36) g/dl RDW (11.5-14.0) % Plt Count (150-450) K/mm3 MPV (7.5-11.0) fl Segmented Neutrophils (36.0-66.0) % Band Neutrophils (0.0-2.0) % Lymphocytes (Manual) (24-44) % Monocytes (Manual) (0.0-12.0) % Eosinophils (Manual) (0.00-3.0) % Basophils (Manual) (0.0-1.0) % Platelet Estimate (NORMAL) RBC Morphology D-Dimer (215-500) ng/mL Sodium (137-145) mmol/L Potassium (3.5-5.1) mmol/L Chloride (98-107) mmol/L Carbon Dioxide (22-30) mmol/L Anion Gap (5-15) MEQ/L BUN (7-17) mg/dL Creatinine (0.52-1.04) mg/dL Estimated GFR ML/MIN Glucose (74-106) mg/dL POC Glucometer (74 to 106) mg/dL Hemoglobin A1c 8.03 H (4.5-6.0) % Lactic Acid (0.4-2.0) Calcium (8.4-10.2) mg/dL Total Bilirubin (0.2-1.3) mg/dL AST (14-36) U/L ALT (0-35) U/L Alkaline Phosphatase (38-126) U/L Troponin I (0.000-0.034) ng/mL Serum Total Protein (6.3-8.2) g/dL Albumin (3.5-5.0) g/dL Triglycerides (30-150) mg/dL Cholesterol (50-200) mg/dL LDL Cholesterol (30-100) mg/dL HDL Cholesterol (40-60) mg/dL Heart Disease Risk Ratio Urine Color (YELLOW) Urine Appearance (CLEAR) Urine pH (5-6) Ur Specific Outlook (1.005-1.025) Urine Protein (Negative) Urine Ketones (NEGATIVE) Urine Blood (0-5) Jacob/ul Urine Nitrite (NEGATIVE) Urine Bilirubin (NEGATIVE) Urine Urobilinogen (0-1) mg/dL Ur Leukocyte Esterase (NEGATIVE) Urine WBC (Auto) (0-5) /HPF Urine RBC (Auto) (0-2) /HPF U Epithel Cells (Auto) (FEW) /HPF Urine Bacteria (Auto) (NEGATIVE) /HPF U Non-Squamous Epi Cells (FEW) /HPF Urine Mucus (Auto) (NEGATIVE) /HPF Urine Culture Reflexed (NO) Urine Glucose (NEGATIVE) mg/dL Monoscreen (Negative) Influenza Type A Ag (NEGATIVE) Influenza Type B Ag (NEGATIVE) SARS-CoV-2 (PCR) (NEGATIVE) Group A Strep Antibody (NEGATIVE) Micro Results-Entire Visit: Accuchecks Date 11/14/20 Date 11/13/20 Time 07:40 Time 20:53 - Radiology Exams Ordered Rad Exams-Entire Visit: Radiology Procedures Category Date Time Status CHEST 1 VIEW (PORTABLE) Stat Exams 11/13/20 17:25 Completed - Procedures and Test Procedures and Tests throughout Hospitalization: Therapy Orders & Screens 11/13/20 22:34 EKG [id number],QAMX3,PRN Comment: Respiratory Therapy Consult ONCE Comment: Reason For Exam: 11/14/20 05:00 EKG ROUTINE Comment: Diagnosis: Shortness of Breath 11/15/20 05:00 EKG DAILY Comment: Diagnosis: Shortness of Breath 11/16/20 05:00 EKG DAILY Comment: Diagnosis: Shortness of Breath 11/17/20 05:00 EKG DAILY Comment: Diagnosis: Shortness of Breath - Discharge Disposition: Home, Self-Care Condition: Good Prescriptions: New Lactobacillus Acidophilus [Acidophilus Lactobacilli] 1 each PO BID #16 Guaifenesin [Humibid] 1,200 mg PO BID PRN 7 Days #15 tab PRN Reason: sputum production Levofloxacin [Levaquin] 500 mg PO DAILY #8 tablet Continue Duloxetine HCl [Cymbalta] 60 mg PO DAILY Ergocalciferol (Vitamin D2) [Vitamin D] 50,000 unit PO .WEEKLY Gabapentin 800 mg PO QID Omeprazole 20 MG [Prilosec 20 mg] 20 mg PO DAILY modafiniL [Provigil] 1 ea DAILY Insulin Detemir [Levemir] 40 unit SQ HS Fluoxetine HCl 1 ea DAILY Metoprolol Tartrate 50 mg PO DAILY Hydrocodone/Acetaminophen [Hydrocodone-Acetamin 10-325 mg] 1 each PO Q12H PRN PRN PRN Reason: Pain Chlorthalidone 25 mg PO DAILY Atorvastatin Calcium 10 mg PO DAILY Follow up with: WAQAR GREEN MD [Primary Care Provider] -
[2020-11-14] MEDS ORDERED: Cymbalta 30 MG Capsule PO SCH (10:00)
[2020-11-14] MEDS ORDERED: Pepcid 20 MG VIAL IV SCH (10:00)
[2020-11-14] MEDS ORDERED: Mucinex 600MG ER Tabs PO SCH (10:00)
[2020-11-14] MEDS ORDERED: Ecotrin 325 MG PO SCH (10:00)
[2020-11-14] MEDS ORDERED: HYDROCODONE-ACETAMIN 10-325 MG PO PRN (10:37)
[2020-11-14] MEDS ORDERED: Prozac 20 MG PO SCH (11:00)
[2020-11-14] MEDS ORDERED: PROVENTIL 2.5 MG/3 ML NEB IH SCH (11:00)
[2020-11-14] MEDS ORDERED: Protonix 40MG Tablet PO SCH (11:00)
[2020-11-14] MEDS ORDERED: Lopressor 50 MG PO SCH (11:00)
[2020-11-14] MEDS ORDERED: NON-FORMULARY ITEM PO SCH (11:00)
[2020-11-14] MEDS ORDERED: Zocor 10MG PO SCH (11:00)
[2020-11-14 11:23] VITALS: BP 115/59; PULSE 87; O2SAT 98
[2020-11-14] MEDS ORDERED: Neurontin 400 MG PO SCH (13:00)
[2020-11-14] MEDS ORDERED: Levofloxacin 500MG/100ML D5W 500 MG/100 ML BAG IV SCH (18:00)
[2020-11-14] MEDS ORDERED: NON-FORMULARY ITEM (Insulin Detemir [Levemir] 40 UNIT) SQ SCH (22:00)
[2020-11-14] MEDS ORDERED: NEURONTIN 300 MG PO SCH (22:00)
[2020-11-14] MEDS ORDERED: Lantus Insulin SQ SCH (22:00)
[2020-11-14] MEDS ORDERED: Lantus Insulin SQ ONE (23:32)
[2020-11-14] MEDS ORDERED: Neurontin 400 MG PO ONE (23:33)
[2020-11-15] MEDS ORDERED: FLUOXETINE HCL PO SCH (10:00)
[2020-11-15] MEDS ORDERED: NON-FORMULARY ITEM (Omeprazole 20 Mg [Prilosec 20 Mg] 20 MG) PO SCH (10:00)
[2020-11-15] MEDS ORDERED: NON-FORMULARY ITEM (Chlorthalidone [Chlorthalidone] 25 MG) PO SCH (10:00)
[2020-11-15] MEDS ORDERED: NON-FORMULARY ITEM (Atorvastatin Calcium [Atorvastatin Calcium] 10 MG) PO SCH (10:00)
== END 2020-11-14 13:58 | disposition home or self-care (01) ==
LOC: ED 16:23 → MED SURG 22:04
PROVIDERS: ADMIT General Practice; ATTEND General Practice
DX: R07.9 Chest pain, unspecified (principal); N39.0 Urinary tract infection, site not specified; R51.9 Headache, unspecified; J32.9 Chronic sinusitis, unspecified; R06.02 Shortness of breath; R07.81 Pleurodynia; E11.9 Type 2 diabetes mellitus without complications; Z79.4 Long term (current) use of insulin; G62.9 Polyneuropathy, unspecified; E66.01 Morbid (severe) obesity due to excess calories; Z79.899 Other long term (current) drug therapy; M79.7 Fibromyalgia; K21.9 Gastro-esophageal reflux disease without esophagitis; Z20.822 Contact with and (suspected) exposure to COVID-19; I25.2 Old myocardial infarction
CPT/HCPCS: 36000; 36415; 71045; 80053; 80061; 81001; 82947; 83036; 83605; 83721; 84484; 85025; 85379; 86308; 87040; 87086; 87400; 87651; 93005; 93268; 94640; 94760; 96365; 96374; 99285; G0378; U0003; J1100; J1815; J1956; J7609; A9270-GY

== ENCOUNTER 2022-02-19 23:18 | Emergency (ER) | payer OTHER ==
--- NOTE | 2022-02-19 23:20 | ERPHSYRPT ---
- History of Present Illness Time Seen by Provider: 02/19/22 23:20 Source: patient Exam Limitations: no limitations Physician History: This is a 51-year-old white female patient of Dr. Kenny, a pain specialist. This patient has a history of peripheral neuropathy and fibromyalgia. She takes Frederic tens on a daily basis. In the last week she states she has noticed the pain in the left hip down to the left knee has worsened. She called the office of Dr. Kenny and they made her appointment for 02/22/2022. The patient states that the pain was worse today and despite taking the Norco10 pain pill it did not even take the edge off per her report. She denies trauma or falling. She denies any change in activity level. Method of Injury: other (No injury) Occurred: days ago (Worsened over the last 2 to 3 days) Quality: constant, aching Severity of Pain-Max: moderate Severity of Pain-Current: moderate Lower Extremities Pain: hip: left, knee: left, thigh: left Modifying Factors: Improves With: movement Associated Symptoms: other (Hurts to bear weight) Allergies/Adverse Reactions: Penicillins Allergy (Mild, Verified 02/20/22 00:55) Swelling Home Medications: Duloxetine HCl [Cymbalta] 60 mg PO DAILY 06/08/16 [History] Ergocalciferol (Vitamin D2) [Vitamin D] 50,000 unit PO .WEEKLY 06/08/16 [History] Gabapentin 800 mg PO QID 08/28/16 [History] Omeprazole 20 MG [Prilosec 20 mg] 20 mg PO DAILY 05/02/17 [History] Atorvastatin Calcium 10 mg PO DAILY 11/13/20 [History] Chlorthalidone 25 mg PO DAILY 11/13/20 [History] Fluoxetine HCl 1 ea DAILY 11/13/20 [History] Hydrocodone/Acetaminophen [Hydrocodone-Acetamin 10-325 mg] 1 each PO Q12H PRN PRN 11/13/20 [History] Insulin Detemir [Levemir] 40 unit SQ HS 11/13/20 [History] Metoprolol Tartrate 50 mg PO DAILY 11/13/20 [History] modafiniL [Provigil] 1 ea DAILY 11/13/20 [History] Hx Tetanus, Diphtheria Vaccination/Date Given: Yes Hx Influenza Vaccination/Date Given: No Hx Pneumococcal Vaccination/Date Given: No Travel Risk - International Travel Have you traveled outside of the country in past 3 weeks: No - Coronavirus Screening Are you exhibiting any of the following symptoms?: No Close contact with a COVID-19 positive Pt in past 14-21 Days: No - Vaccine Status Have you recieved a Covid-19 vaccination: Yes [employer] Driver: Apparent - Vaccination Dates Date of 2cond Vaccination (if applicable): ? - Review of Systems Constitutional: No Symptoms Eyes: No Symptoms Ears, Nose, & Throat: No Symptoms Respiratory: No Symptoms Cardiac: No Symptoms Abdominal/Gastrointestinal: No Symptoms Genitourinary Symptoms: No Symptoms Musculoskeletal: Other (Pain left hip left upper leg to the level of the knee on the left side), No Fall, No Injury Skin: No Symptoms Neurological: No Symptoms Psychological: No Symptoms Endocrine: No Symptoms Hematologic/Lymphatic: No Symptoms Immunological/Allergic: No Symptoms All Other Systems: Reviewed and Negative - Past Medical History Pertinent Past Medical History: Yes Neurological History: Peripheral Neuropathy ENT History: Other Cardiac History: Myocardial Infarction ([place]) Respiratory History: Other Endocrine Medical History: Diabetes Type II Musculoskeletal History: Fibromyalgia GI Medical History: GERD History: No Pertinent History Psycho-Social History: Depression Female Reproductive Disorders: No Pertinent History Other Medical History: sleep apnea - Past Surgical History Past Surgical History: Yes Neuro Surgical History: No Pertinent History Cardiac: No Pertinent History Respiratory: No Pertinent History Gastrointestinal: No Pertinent History Genitourinary: No Pertinent History Musculoskeletal: No Pertinent History Female Surgical History: Hysterectomy Other Surgical History: cyst removals from occiput region of scalp noted - Social History Smoking Status: Never smoker Exposure to second hand smoke: No Drug Use: none Patient Lives Alone: No - Nursing Vital Signs Nursing Vital Signs: Initial Vital Signs Temperature 97.9 F 02/20/22 00:41 Pulse Rate 87 02/20/22 00:41 Respiratory Rate 18 02/20/22 00:41 Blood Pressure 148/84 02/20/22 00:41 O2 Sat by Pulse Oximetry 99 02/20/22 00:41 Pain Scale Pain Intensity 8 - Physical Exam General Appearance: no apparent distress, alert, anxiety, obese Eyes, Ears, Nose, Throat Exam: normal ENT inspection, moist mucous membranes Neck Exam: normal inspection, non-tender, supple, full range of motion Cardiovascular/Respiratory Exam: chest non-tender, no respiratory distress Gastrointestinal/Abdominal Exam: non-tender Back Exam: normal inspection, normal range of motion, No CVA tenderness, No vertebral tenderness Hips Exam: right: non-tender, left: soft tissue tenderness, bilateral: normal inspection, normal range of motion, no evidence of injury Legs Exam: right leg: non-tender, left leg: soft tissue tenderness, bilateral leg: normal inspection, normal range of motion, no evidence of injury Knees Exam: bilateral knee: non-tender, normal inspection, normal range of motion, no evidence of injury Ankle Exam: bilateral ankle: non-tender, normal inspection, normal range of mo tion, no evidence of injury Foot Exam: bilateral foot: non-tender, normal inspection, normal range of motion, no evidence of injury, other (There are strong dopplerable pulses bilaterally. No evidence of infection. No pedal edema) Neuro/Tendon Exam: normal sensation, normal motor functions, normal tendon functions Mental Status Exam: alert, oriented x 3, cooperative Skin Exam: normal color, warm, dry, other (No cellulitis, no infection) SpO2 Interpretation: normal O2 Delivery: Room Air - Course Nursing assessment & vital signs reviewed: Yes Ordered Tests: Medication Summary Generic Name Dose Route Start Last Admin Trade Name Freq PRN Reason Stop Dose Admin Hydromorphone HCl 1 mg 02/20/22 00:54 Hydromorphone 1 Mg/1ml Inj 1 Mg/Ml Syringe IM 02/20/22 00:55 STAT ONE Orphenadrine Citrate 60 mg 02/20/22 00:54 Orphenadrine Citrate 60 Mg/2 Ml Vial IM 02/20/22 00:55 STAT ONE - Progress Progress: improved, pain not gone completely Counseled pt/family regarding: diagnosis, need for follow-up - Departure Departure Disposition: Home Clinical Impression: Left leg pain Condition: Stable Critical Care Time: No Referrals: WAQAR GREEN MD [Primary Care Provider] - Follow up/PCP as directed Additional Instructions: Continue taking your Frederic 10 as prescribed. Add to your pain regimen and the medication I prescribed you. Call your pain specialist later this morning for further evaluation management. Prescriptions: Orphenadrine Citrate 100 mg [Norflex 100 MG Tablet] 100 mg PO BID #10 tab
[2022-02-20] MEDS ORDERED: Hydromorphone 1 mg/ml Injection IM ONE (00:54)
[2022-02-20] MEDS ORDERED: Norflex 60 MG/2 ML IM ONE (00:54)
[2022-02-20] MEDS ORDERED: solu-MEDROL 125 MG, Sterile H2O 10 ml 2 ML IM ONE ×2 (00:55)
[2022-02-20] MEDS ORDERED: ZOFRAN ODT 4 MG PO ONE (00:55)
[2022-02-20] MEDS ORDERED: solu-MEDROL ONE (01:32)
[2022-02-20] MEDS ORDERED: ZOFRAN ODT 4 MG ONE (01:32)
[2022-02-20] MEDS ORDERED: Hydromorphone 1 mg/ml Injection ONE (01:32)
[2022-02-20] MEDS ORDERED: Sterile H2O 10 ml IJ ONE (01:32)
[2022-02-20] MEDS ORDERED: Norflex 60 MG/2 ML ONE (01:32)
[2022-02-20 02:06] VITALS: BP 135/85; PULSE 76; O2SAT 97
[2022-02-20] MEDS ORDERED: Pepcid 20 MG PO ONE (02:11)
[2022-02-20] MEDS ORDERED: Pepcid 20 MG ONE (02:12)
== END 2022-02-20 02:15 | disposition home or self-care (01) ==
LOC: ED 23:18
DX: M79.605 Pain in left leg (principal); M25.552 Pain in left hip; E11.42 Type 2 diabetes mellitus with diabetic polyneuropathy; Z79.891 Long term (current) use of opiate analgesic; Z79.899 Other long term (current) drug therapy; Z79.4 Long term (current) use of insulin
CPT/HCPCS: 96372; 99283; J1170; J2360; J2930; Q0162; A9270-GY

== ENCOUNTER 2022-03-15 08:34 | Day surgery (SDC) | payer OTHER ==
[2012-11-08 13:27] VITALS: BP 130/45
[2022-03-15] MEDS ORDERED: Depo-Medrol 40 MG/ML IM ONE (08:35)
[2022-03-15] MEDS ORDERED: BUPIVACAINE 0.5% VIAL IJ ONE (08:35)
[2022-03-15] MEDS ORDERED: DIPRIVAN 200 MG/20 ML IV ONE ×2 (10:26→11:27)
--- NOTE | 2022-03-15 12:12 | XRAY ---
Indication: Bilateral SI joint injection. Intraoperative fluoroscopy provided for 26 seconds. 4 digital spot images submitted for interpretation demonstrates posterior needle tip projecting over the left and right SI joint. Correlate with intraoperative findings/report.
--- NOTE | 2022-03-15 12:22 | XRAY ---
26 seconds fluoroscopy time in surgery for injections of both SI joints.
[2022-03-15] MEDS ORDERED: Lactated Ringers 1,000 ML IV ONE (15:28)
== END 2022-03-15 11:50 | disposition home or self-care (01) ==
LOC: SDC-PAIN 08:34
PROVIDERS: ATTEND Psychiatry & Neurology Pain Medicine
DX: M46.1 Sacroiliitis, not elsewhere classified (principal); E11.9 Type 2 diabetes mellitus without complications; Z79.899 Other long term (current) drug therapy
CPT/HCPCS: 27096; 72202; 77002; 82947; G0260; J1030; J2704

== ENCOUNTER 2022-05-24 07:54 | Day surgery (SDC) | payer OTHER ==
[2012-11-08 13:27] VITALS: BP 130/45
[2022-05-24] MEDS ORDERED: Depo-Medrol 40 MG/ML IM ONE (07:55)
[2022-05-24] MEDS ORDERED: BUPIVACAINE 0.5% VIAL IJ ONE (07:55)
[2022-05-24] MEDS ORDERED: DIPRIVAN 200 MG/20 ML IV ONE (09:44)
--- NOTE | 2022-05-24 10:21 | XRAY ---
Indication: Left shoulder and subacromial bursa injection. Intraoperative fluoroscopy provided for 38 seconds. 2 digital spot images submitted for interpretation demonstrates needle tip projecting over the left glenohumeral joint superiorly. Second needle tip subacromial. Small amount of contrast injected for both needle tip placement. Correlate with intraoperative findings/report.
--- NOTE | 2022-05-24 10:24 | XRAY ---
38 seconds of fluoroscopy was used in surgery for a left intra-articular shoulder and subacromial bursa injection.
[2022-05-24] MEDS ORDERED: Lactated Ringers 1,000 ML IV ONE (10:35)
== END 2022-05-24 10:15 | disposition home or self-care (01) ==
LOC: SDC-PAIN 07:54
PROVIDERS: ATTEND Psychiatry & Neurology Pain Medicine
DX: M19.012 Primary osteoarthritis, left shoulder (principal); M75.52 Bursitis of left shoulder; E11.9 Type 2 diabetes mellitus without complications; Z79.899 Other long term (current) drug therapy
CPT/HCPCS: 20610; 73030; 77002; 82947; J1030; J2704; Q9966

== ENCOUNTER 2023-04-29 10:15 | Emergency (ER) | payer MEDICARE ==
[2023-04-29 10:57] VITALS: BP 143/95; RESP 18; TEMP 97.6; O2SAT 97
--- NOTE | 2023-04-29 11:32 | ERPHSYRPT ---
- History of Present Illness Time Seen by Provider: 04/29/23 12:53 Patient Subjective Stated Complaint: PT HERE FOR FLARE UP OF CHRONIC BACK PAIN. SHE DENIES ANY INJURY, SHE STATES THE PAIN GOES DOWN BOTH LEGS, SHE GETS INJ ECTIONS FOR LEG PAIN,PT SHES PAIN CLINIC IN 2 DAYS Triage Nursing Assessment: PT ALERT, RESP EASY, SKIN W/D/P. ARRIVED PER WC, ABLE TO GET SELF OUT OF BED SLOWLY ON OWN, NO EDEMA NOTED. Physician History: Patient is 53-year-old female with significant past medical history of hyperlipidemia type 2 diabetes hypertension and also chronic back pain due to degenerative disc disease started having worsening pain since yesterday on the lower back radiating to the left thigh. Her pain got so worse that she could not walk or sit or stand or lie down so she came to the emergency room she denies any abdominal pain nausea vomiting or urinary problems fever or chills. Patient has been following at pain management for same problem and she has another appointment in 2 days. Timing/Duration: today Quality: radiating Back Pain Location: lumbar spine Back Pain Radiation: upper legs Severity of Pain-Max: moderate Severity of Pain-Current: moderate Associated Symptoms: denies symptoms Previous symptoms: same symptoms as today, recently seen Body Map: 1 - pain 2 - pain radiation Allergies/Adverse Reactions: Penicillins Allergy (Mild, Verified 04/29/23 10:50) Swelling Home Medications: Duloxetine HCl [Cymbalta] 60 mg PO DAILY 06/08/16 [History] Ergocalciferol (Vitamin D2) [Vitamin D] 50,000 unit PO .WEEKLY 06/08/16 [History] Gabapentin 800 mg PO QID 08/28/16 [History] Omeprazole 20 MG [Prilosec 20 mg] 20 mg PO DAILY 05/02/17 [History] Atorvastatin Calcium 80 mg PO HS 11/13/20 [History] Chlorthalidone 25 mg PO DAILY 11/13/20 [History] Fluoxetine HCl 1 ea DAILY 11/13/20 [History] Hydrocodone/Acetaminophen [Hydrocodone-Acetamin 10-325 mg] 1 each PO Q8HPRN PRN 11/13/20 [History] Insulin Detemir [Levemir] 56 unit SQ HS 11/13/20 [History] Metoprolol Tartrate 50 mg PO BID 11/13/20 [History] Dulaglutide [Trulicity] 0.75 mg SQ WEEKLY 02/20/22 [History] Rosuvastatin Calcium 10 mg PO DAILY 04/29/23 [History] Semaglutide [Ozempic] 1 mg SQ UD 04/29/23 [History] Hx Tetanus, Diphtheria Vaccination/Date Given: No Hx Influenza Vaccination/Date Given: No Hx Pneumococcal Vaccination/Date Given: No Immunizations Up to Date: Yes Travel Risk - International Travel Have you traveled outside of the country in past 3 weeks: No - Coronavirus Screening Are you exhibiting any of the following symptoms?: No Close contact with a COVID-19 positive Pt in past 14-21 Days: No - Vaccine Status Have you recieved a Covid-19 vaccination: Yes 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 - Review of Systems Constitutional: No Fever, No Chills Eyes: No Symptoms Ears, Nose, & Throat: No Symptoms Respiratory: No Cough, No Dyspnea Cardiac: No Chest Pain, No Edema, No Syncope Abdominal/Gastrointestinal: No Abdominal Pain, No Nausea, No Vomiting, No Diarrhea Genitourinary Symptoms: No Dysuria Musculoskeletal: Back Pain, No Neck Pain Skin: No Rash Neurological: No Dizziness, No Focal Weakness, No Sensory Changes Psychological: No Symptoms Endocrine: No Symptoms All Other Systems: Reviewed and Negative - Past Medical History Pertinent Past Medical History: Yes Neurological History: Peripheral Neuropathy ENT History: Other Cardiac History: Myocardial Infarction ([place]) Respiratory History: Other Endocrine Medical History: Diabetes Type II Musculoskeletal History: Fibromyalgia GI Medical History: GERD History: No Pertinent History Psycho-Social History: Depression Female Reproductive Disorders: No Pertinent History Other Medical History: sleep apnea - Past Surgical History Past Surgical History: Yes Neuro Surgical History: No Pertinent History Cardiac: No Pertinent History Respiratory: No Pertinent History Gastrointestinal: No Pertinent History Genitourinary: No Pertinent History Musculoskeletal: No Pertinent History Female Surgical History: Hysterectomy Other Surgical History: cyst removals from occiput region of scalp noted - Social History Smoking Status: Never smoker Exposure to second hand smoke: No Drug Use: none Patient Lives Alone: No - Nursing Vital Signs Nursing Vital Signs: Initial Vital Signs Temperature 97.6 F 04/29/23 10:57 Pulse Rate 83 04/29/23 10:57 Respiratory Rate 18 04/29/23 10:57 Blood Pressure 143/95 04/29/23 10:57 O2 Sat by Pulse Oximetry 97 04/29/23 10:57 Pain Scale Pain Intensity [] 8 Pain Intensity 8 - Physical Exam General Appearance: no apparent distress, alert Eye Exam: PERRL/EOMI, eyes nml inspection Neck Exam: normal inspection, non-tender, supple, full range of motion, No meningismus, No midline tenderness Respiratory Exam: normal breath sounds, lungs clear, No respiratory distress Cardiovascular Exam: regular rate/rhythm, normal heart sounds Gastrointestinal Exam: soft, No tenderness, No mass Back Exam: decreased range of motion, muscle spasm Extremity Exam: normal inspection, normal range of motion, No calf tenderness, No pedal edema Peripheral Pulses: carotid (R): 2+, carotid (L): 2+, femoral (R): 2+, femoral (L): 2+, dorsalis-pedis (R): 2+, dorsalis-pedis (L): 2+ Neurologic Exam: alert, oriented x 3, cooperative, intelligence support officer II-XII nml as tested, normal mood/affect, nml station & gait, sensation nml, No motor deficits, No sensory deficit, No disoriented Skin Exam: normal color, warm, dry, No rash SpO2 Interpretation: normal SpO2: 97 O2 Delivery: Room Air - Course Nursing assessment & vital signs reviewed: Yes - Radiology Exams L-Spine X-ray Interpretation: Reviewed by me, Negative, No Fracture Ordered Tests: Active Orders 24 hr Category Date Time Status LUMBAR COMPLETE (MIN 4 VIEWS) Stat Exams 04/29/23 12:13 Taken CBC W DIFF Stat Lab 04/29/23 11:30 Completed CMP Stat Lab 04/29/23 11:30 Completed TSH [TSH, 3RD Generation] Stat Lab 04/29/23 Completed UA W/RFX UR CULTURE Stat Lab 04/29/23 11:51 Ordered Urine Triage Profile Stat Lab 04/29/23 11:51 Ordered Medication Summary Discontinued Medications Generic Name Dose Route Start Last Admin Trade Name Freq PRN Reason Stop Dose Admin Fentanyl Citrate 100 mcg 04/29/23 13:06 Fentanyl Citrate 100 Mcg/2 Ml* Vial IV 04/29/23 13:07 STAT ONE Hydromorphone HCl 1 mg 04/29/23 11:08 04/29/23 11:51 Hydromorphone 1 Mg/1ml Inj IM 04/29/23 11:09 1 mg STAT ONE Administration Hydromorphone HCl Confirm 04/29/23 11:48 Hydromorphone 1 Mg/1ml Inj Administered 04/29/23 11:49 Dose 1 mg .ROUTE .STK-MED ONE Ketorolac Tromethamine 60 mg 04/29/23 11:08 04/29/23 11:51 Ketorolac Tromethamine 30 Mg/Ml Inj IM 04/29/23 11:09 60 mg STAT ONE Administration Ketorolac Tromethamine Confirm 04/29/23 11:48 Ketorolac Tromethamine 30 Mg/Ml Inj Administered 04/29/23 11:49 Dose 60 mg .ROUTE .STK-MED ONE Triamcinolone Acetonide 40 mg 04/29/23 13:07 Triamcinolone Acetonide 40 Mg/Ml Ml IM 04/29/23 13:08 STAT ONE Lab/Rad Data: Laboratory Result Diagrams 04/29/23 11:30 04/29/23 11:30 Laboratory Results 04/29/23 04/29/23 04/29/23 Range/Units Unknown 11:30 11:30 WBC 8.1 (4.0-10.5) x10^3/uL RBC 5.34 (4.1-5.4) x10^6/uL Hgb 14.8 (12.0-16.0) g/dL Hct 47.1 H (35-47) % MCV 88.2 (78-100) fL MCH 27.7 (26-32) pg MCHC 31.4 L (32-36) g/dL RDW 13.8 (11.5-14.0) % Plt Count 316 (150-450) x10^3/uL MPV 8.8 (7.5-11.0) fL Gran % 66.6 H (36.0-66.0) % Immature Gran % (Auto) 0.2 (0.00-0.4) % Nucleat RBC Rel Count 0.0 (0.00-0.1) % Eos # (Auto) 0.26 (0-0.5) x10^3/uL Immature Gran # (Auto) 0.02 (0.00-0.03) x10^3u/L Absolute Lymphs (auto) 1.73 (1.0-4.6) x10^3/uL Absolute Monos (auto) 0.63 (0.0-1.3) x10^3/uL Absolute Nucleated RBC 0.00 (0.00-0.01) x10^3u/L Lymphocytes % 21.3 L (24.0-44.0) % Monocytes % 7.8 (0.0-12.0) % Eosinophils % 3.2 (0.00-5.0) % Basophils % 0.9 (0.0-0.4) % Absolute Granulocytes 5.41 (1.4-6.9) x10^3/uL Basophils # 0.07 (0-0.4) x10^3/uL Sodium 136 L (137-145) mmol/L Potassium 4.4 (3.5-5.1) mmol/L Chloride 107 (98-107) mmol/L Carbon Dioxide 22 (22-30) mmol/L Anion Gap 11.3 (5-15) MEQ/L BUN 16 (7-17) mg/dL Creatinine 0.68 (0.52-1.04) mg/dL Estimated GFR 104.1 ML/MIN Glucose 102 (74-106) mg/dL Calcium 9.6 (8.4-10.2) mg/dL Total Bilirubin 0.60 (0.2-1.3) mg/dL AST 20 (14-36) U/L ALT 23 (0-35) U/L Alkaline Phosphatase 117 (38-126) U/L Serum Total Protein 7.3 (6.3-8.2) g/dL Albumin 4.0 (3.5-5.0) g/dL TSH 3rd Generation 0.229 L (0.47-4.68) mIU/L - Progress Progress: improved, pain not gone completely Counseled pt/family regarding: lab results, diagnosis, need for follow-up, rad results Medical Desision Making - Independent Historian Additional History obtained from: Mother - Diagnostic Testing Diagnostic test were ordered, analyzed, and reviewed by me: Yes Radiological Interpretation: Reviewed by me - Risk of complications Low Risk: Low risk of morbidity from additional dx testing or treatment - Departure Departure Disposition: Home Clinical Impression: Left-sided low back pain with sciatica Qualifiers: Chronicity: acute Sciatica laterality: sciatica of left side Qualified Code(s): M54.42 - Lumbago with sciatica, left side Condition: Stable Critical Care Time: No Referrals: WAQAR GREEN MD [Primary Care Provider] - Follow up/PCP as directed (Follow up with pain management Tomorrow.) Instructions: Low Back Pain (DC), Sciatica (DC) Additional Instructions: Discharge/Care Plan MARIA LUISA RUDD was seen on 04/29/23 in the Emergency Room. The patient was counseled regarding Diagnosis,Lab results, Imaging studies, need for follow up and when to return to the Emergency Room. Prescriptions given: Discharge Note I have spoken with the patient and/or caregivers. I have explained the patient's condition, diagnosis and treatment plan based on the information available to me at this time. I have answered the patient's and/or caregiver's questions and addressed any concerns. The patient and/or caregivers have as good understanding of the patient's diagnosis, condition and treatment plan as can be expected at this point. The vital signs have been stable. The patient's condition is stable and appropriate for discharge from the emergency department. The patient will pursue further outpatient evaluation with the primary care physician or other designated or consulting physician as outlined in the discharge instructions. The patient and/or caregivers are agreeable to this plan of care and follow-up instructions have been explained in detail. The patient and/or caregivers have received these instruction. The patient/and or caregivers are aware that any significant change in condition or worsening of symptoms should prompt an immediate return to this or the closest emergency department or call 911. MARIA LUISA RUDD was seen on 04/29/23 n the Emergency Room. At that time you were treated for an emergent condition, during your visit Laboratory, Radiology and/or other procedures may have been ordered. It is very important that you follow-up with your Primary Care Physician WAQAR GREEN within the next 24-48 hours to review your Emergency Room visit and the final results of testing that was ordered. Some test results such as Urine Cultures, Blood Cultures, and other cultures if ordered will not be finalized for 24-48 hours. If you do not have a Primary Care Provider please call the medical records department at [phone] to obtain a copy of your results or you may sign into our patient portal to obtain these results by visiting us @ [email or web address] and completing the following steps: 1. Click on the Patient Portal link 2. Click the Patient Self Enrollment Link to complete the enrollment form and entering your 3. Once the enrollment form is completed you will receive an email with a temporary ID and password at the email address you provided. 4. Next choose a user name and password. Your user name must be at least 4 characters long and your password must be at least 4 characters long. 5. Choose a security question from the list and provide your answer to the question. If you already have signed into the Health Portal you may access your Health Care Information 02/10 by the following steps: 1. Login to our website @ [email or web address] 2. Enter your original user name and password. FAQS The [facility] Health Portal is an online tool that contains your Lab Results, Radiology Reports, Visit History, Discharge Instructions and Health Summary Lab and Radiology Results will not be available for 72 hours on the portal. The Portal is a secure site, passwords are encryted and URLs are re-written so they cannot be copied and pasted. You and authorized family members are the only ones who can access your Portal. Also there is a timeout feature that protects your information if you leave the Portal page open. If you have technical difficulty please use the Contact Us link on the page this will allow you to submit any questions you have regarding the Portal or you may contact the Medical Record Department at [phone].
[2023-04-29] MEDS ORDERED: TORAdol 30 mg Injection ONE (11:48)
[2023-04-29] MEDS ORDERED: Hydromorphone 1 mg/ml Injection ONE (11:48)
[2023-04-29] MEDS: TORAdol 30 mg Injection IM ONE (11:51)
[2023-04-29] MEDS: Hydromorphone 1 mg/ml Injection IM ONE (11:51)
[2023-04-29 11:52] LABS: Absolute Neutrophil Ct (ANC) 5.41 x10^3/uL (1.4-6.9); BASOPHIL % 0.9 % (0.0-0.4); Basophil (Absolute #) 0.07 x10^3/uL (0-0.4); Eosinophil % 3.2 % (0.00-5.0); Eosinophil (Absolute #) 0.26 x10^3/uL (0-0.5); Hematocrit 47.1 % (35-47); Hemoglobin 14.8 g/dL (12.0-16.0); IMMATURE GRAN # 0.02 x10^3u/L (0.00-0.03); IMMATURE GRAN % 0.2 % (0.00-0.4); Lymphocyte (Absolute #) 1.73 x10^3/uL (1.0-4.6); Lymphocytes % 21.3 % (24.0-44.0); Mean Cell Volume 88.2 fL (78-100); Mean Corpuscular Hemoglobin 27.7 pg (26-32); Mean Corpuscular Hgb Concent. 31.4 g/dL (32-36); Mean Platelet Volume 8.8 fL (7.5-11.0); Monocyte (Absolute #) 0.63 x10^3/uL (0.0-1.3); Monocytes % 7.8 % (0.0-12.0); Neutrophil % 66.6 % (36.0-66.0); Platelet Count 316 x10^3/uL (150-450); Red Blood Count 5.34 x10^6/uL (4.1-5.4); Red Cell Distribution Width 13.8 % (11.5-14.0); White Blood Count 8.1 x10^3/uL (4.0-10.5)
[2023-04-29 12:17] VITALS: PULSE 79
[2023-04-29 12:50] LABS: ANION GAP 11.3 MEQ/L (5-15); BILIRUBIN,TOTAL 0.6 mg/dL (0.2-1.3); Calcium 9.6 mg/dL (8.4-10.2); Creatinine 1 0.68 mg/dL (0.52-1.04); EST GLOMERULAR FILTRATION RATE 104.1 ML/MIN; Potassium 4.4 mmol/L (3.5-5.1); Total Protein 7.3 g/dL (6.3-8.2)
[2023-04-29] MEDS: SUBLIMAZE 100 MCG/2 ML IV ONE (13:14)
[2023-04-29] MEDS ORDERED: SUBLIMAZE 100 MCG/2 ML ONE (13:15)
[2023-04-29] MEDS ORDERED: Kenalog-40 ONE (13:15)
[2023-04-29] MEDS: Kenalog-40 IM ONE (13:19)
[2023-04-29] MEDS: SUBLIMAZE 100 MCG/2 ML IM ONE (13:25)
--- NOTE | 2023-04-29 18:44 | XRAY ---
Indication: Low back pain. 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 New mild diffuse scattered colonic fecal greatest in right hemicolon. No other bony, articular, or soft tissue abnormalities.
== END 2023-04-29 13:45 | disposition home or self-care (01) ==
LOC: ED 10:15
DX: M54.42 Lumbago with sciatica, left side (principal); E78.5 Hyperlipidemia, unspecified; E11.42 Type 2 diabetes mellitus with diabetic polyneuropathy; I10 Essential (primary) hypertension; Z79.4 Long term (current) use of insulin; Z79.85 Long-term (current) use of injectable non-insulin antidiabetic drugs; Z79.899 Other long term (current) drug therapy
CPT/HCPCS: 36415; 72110; 80053; 84443; 85025; 96372; 99284; J1170; J1885; J3010; J3301